=== PATIENT | female | born 1980 | race Caucasian/White ===

== ENCOUNTER 2016-09-28 12:15 | Emergency (ER) | payer MEDICARE, OTHER ==
[2016-09-28] MEDS ORDERED: diphenhydrAMINE 50 MG/ML 1 ML VIAL IVP STA (13:15)
[2016-09-28] MEDS ORDERED: METOCLOPRAMIDE 5 MG/ML 2 ML VIAL IVP STA (13:15)
[2016-09-28] MEDS ORDERED: SODIUM CHLORIDE 0.9% 500 ML IV ONE (13:15)
--- NOTE | 2016-09-28 13:55 | ED ---
Headache HPI - General Chief Complaint: Headache Stated Complaint: Migraine Time Seen by Provider: 09/28/16 13:07 Source: patient, RN notes reviewed Mode of arrival: ambulatory Limitations: no limitations - History of Present Illness Initial Comments: 35-year-old female presents emergency Department chief complaint migraine headache. Patient has a history of migraines. Patient's extremities fierce that daily. Patient states that she woke up today with a headache consistent with her normal migraine headaches. She states is diffuse slightly worse on the left. Patient denies focal weakness, dizziness, blurred vision, chest pain , shortness breath, fever, chills, neck pain. Patient denies any hematemesis but states that she did have some vomiting and nausea associated with her headache. Patient states is very common. Patient states that she is also recently found out that she is and she limited on her medications that she can take. Patient has no abdominal complaints. Denies any vaginal bleeding or vaginal discharge. - Related Data Home Medications Medication Instructions Recorded Confirmed Acetaminophen/Diphenhydramine 1 tab PO HS 09/28/16 09/28/16 [Tylenol PM 500-25mg] Butalb/APAP/Caff 50-325-40Mg 1 tab PO BID PRN 09/28/16 09/28/16 [Fioricet 50-325-40] Cyclobenzaprine [Flexeril] 5 mg PO DAILY PRN 09/28/16 09/28/16 Topiramate [Topamax] 50 mg PO HS 09/28/16 09/28/16 Allergies Allergy/AdvReac Type Severity Reaction Status Date / Time aspirin Allergy Nausea & Verified 09/28/16 13:34 Vomiting cephalexin monohydrate Allergy Rash/Hives Verified 09/28/16 13:34 [From Keflex] morphine Allergy Unknown Verified 09/28/16 13:34 propanolol Allergy Rash/Hives Uncoded 09/28/16 12:30 Review of Systems ROS Statement: Those systems with pertinent positive or pertinent negative responses have been documented in the HPI. ROS Other: All systems not noted in ROS Statement are negative. Past Medical History Past Medical History: Hyperlipidemia, Seizure Disorder Additional Past Medical History / Comment(s): ovarian cyst chronic back pain ddd bipolar, migraines History of Any Multi-Drug Resistant Organisms: None Reported Additional Past Surgical History / Comment(s): medical history - migraines, DDD. surgical history - laproscopy for ovarian cyst Past Psychological History: Anxiety, Bipolar, Depression Smoking Status: Current every day smoker Past Alcohol Use History: Occasional Past Drug Use History: Marijuana General Exam Limitations: no limitations General appearance: alert, in no apparent distress Head exam: Present: atraumatic, normocephalic, normal inspection Eye exam: Present: normal appearance, PERRL, EOMI. Absent: scleral icterus, conjunctival injection, periorbital swelling ENT exam: Present: normal exam, normal oropharynx, mucous membranes moist, TM's normal bilaterally Neck exam: Present: normal inspection. Absent: tenderness, meningismus, lymphadenopathy Respiratory exam: Present: normal lung sounds bilaterally. Absent: respiratory distress, wheezes, rales, rhonchi, stridor Cardiovascular Exam: Present: regular rate, normal rhythm, normal heart sounds. Absent: systolic murmur, diastolic murmur, rubs, gallop, clicks Neurological exam: Present: alert, oriented X3, CN II-XII intact, reflexes normal. Absent: motor sensory deficit Skin exam: Present: warm, dry, intact, normal color. Absent: rash Course Vital Signs 09/28/16 12:27 Temperature 98.1 F Pulse Rate 78 Respiratory 20 Rate Blood Pressure 128/78 O2 Sat by Pulse 100 Oximetry Medical Decision Making - Medical Decision Making 35-year-old female presents emergency department for headache. Patient's was given IV fluids, Reglan Benadryl. Patient states her symptoms have resolved. Patient will be discharged at this time. Disposition Clinical Impression: Migraine Disposition: HOME SELF-CARE Condition: Stable Instructions: Acute Headache (ED) Additional Instructions: Please return to the Emergency Department if symptoms worsen or any other concerns. Time of Disposition: 14:02
[2016-09-28 14:14] VITALS: BP 127/59; PULSE 79; RESP 16; TEMP 98.4
== END 2016-09-28 14:14 | disposition home or self-care (01) ==
LOC: EC 12:15
DX: G43.909 Migraine, unspecified, not intractable, without status migrainosus (principal); R11.2 Nausea with vomiting, unspecified; G40.909 Epilepsy, unspecified, not intractable, without status epilepticus; F31.9 Bipolar disorder, unspecified; F17.200 Nicotine dependence, unspecified, uncomplicated; Z79.899 Other long term (current) drug therapy; Z88.6 Allergy status to analgesic agent; Z88.1 Allergy status to other antibiotic agents; Z88.5 Allergy status to narcotic agent; Z88.8 Allergy status to other drugs, medicaments and biological substances
CPT/HCPCS: 99283; 96374; 96375; 96361; J1200; J2765

== ENCOUNTER 2018-10-23 07:14 | Inpatient (IN) | payer MEDICARE, OTHER ==
[2018-10-23] MEDS ORDERED: METOCLOPRAMIDE 5 MG/ML 2 ML VIAL IVP STA (07:41)
[2018-10-23] MEDS ORDERED: DILTIAZEM DRIP BOLUS FROM BAG 1 MG SOLN IV ONE (07:41)
[2018-10-23] MEDS ORDERED: SODIUM CHLORIDE 0.9% 1,000 ML IV STA (07:41)
[2018-10-23] MEDS ORDERED: diphenhydrAMINE 50 MG/ML 1 ML VIAL IVP STA ×2 (07:41→13:16)
--- NOTE | 2018-10-23 07:47 | ED ---
General Adult HPI - General Chief complaint: Headache Stated complaint: Headache Time Seen by Provider: 10/23/18 07:17 Source: patient, EMS, RN notes reviewed Mode of arrival: EMS Limitations: no limitations - History of Present Illness Initial comments: Patient is a pleasant 37-year-old female presenting to the emergency Department with headache. Onset of symptoms was yesterday evening. Symptoms have slowly progressive worsened since that time. Headache is now severe. Headache is left sided. Patient does have history of chronic headaches associated with chronic migraines. Patient does have nausea and did vomit once. Patient also has some photophobia. Patient does admit to having watering in her chest last week however none at this time. No chest discomfort. No dyspnea. Patient denies weakness. No fever. - Related Data Home Medications Medication Instructions Recorded Confirmed Butalb/APAP/Caff 50-325-40Mg 1 tab PO BID PRN 09/28/16 10/23/18 [Fioricet 50-325-40] Allergies Allergy/AdvReac Type Severity Reaction Status Date / Time aspirin Allergy Nausea & Verified 10/23/18 08:20 Vomiting cephalexin monohydrate Allergy Rash/Hives Verified 10/23/18 08:20 [From Keflex] morphine Allergy Unknown Verified 10/23/18 08:20 propanolol Allergy Rash/Hives Uncoded 09/28/16 12:30 Review of Systems ROS Statement: Those systems with pertinent positive or pertinent negative responses have been documented in the HPI. ROS Other: All systems not noted in ROS Statement are negative. Constitutional: Denies: fever Eyes: Denies: eye pain ENT: Denies: ear pain Respiratory: Denies: dyspnea Cardiovascular: Reports: palpitations. Denies: chest pain Endocrine: Denies: fatigue Gastrointestinal: Reports: nausea. Denies: abdominal pain Genitourinary: Denies: dysuria Musculoskeletal: Denies: back pain Skin: Denies: rash Neurological: Reports: headache. Denies: weakness, confusion Psychiatric: Reports: anxiety Past Medical History Past Medical History: Hyperlipidemia, Seizure Disorder Additional Past Medical History / Comment(s): ovarian cyst chronic back pain ddd bipolar, migraines History of Any Multi-Drug Resistant Organisms: None Reported Past Surgical History: Section Additional Past Surgical History / Comment(s): medical history - migraines, DDD. surgical history - laproscopy for ovarian cyst Past Psychological History: Anxiety, Bipolar, Depression Smoking Status: Current every day smoker Past Alcohol Use History: Occasional Past Drug Use History: Cocaine, Marijuana General Exam Limitations: no limitations General appearance: alert, in no apparent distress Head exam: Present: atraumatic Eye exam: Present: normal appearance, PERRL, EOMI. Absent: nystagmus ENT exam: Present: normal oropharynx Neck exam: Present: normal inspection Respiratory exam: Present: normal lung sounds bilaterally Cardiovascular Exam: Present: irregular rhythm, normal heart sounds GI/Abdominal exam: Present: soft. Absent: tenderness Extremities exam: Present: normal inspection. Absent: pedal edema, calf tenderness Neurological exam: Present: alert, oriented X3, CN II-XII intact. Absent: motor sensory deficit Expanded Neurological exam: Present: protecting the airway Speech: Present: fluid speech Cranial nerves: EOM's Intact: Normal Motor strength exam: RUE: 5, LUE: 5, RLE: 5, LLE: 5 Eye Response: (4) open spontaneously Motor Response: (6) obeys commands Verbal Response: (5) oriented Psychiatric exam: Present: normal affect, normal mood Skin exam: Present: normal color Course Vital Signs 10/23/18 10/23/18 10/23/18 07:20 07:24 07:30 Temperature 97.8 F Pulse Rate 125 H 129 H Respiratory 28 H 28 H Rate Blood Pressure 115/90 115/90 O2 Sat by Pulse 100 100 98 Oximetry 10/23/18 10/23/18 10/23/18 08:00 08:30 08:48 Temperature Pulse Rate 125 H 129 H Respiratory 22 Rate Blood Pressure 115/83 115/93 111/92 O2 Sat by Pulse 100 Oximetry EKG Findings - EKG Comments: EKG Findings:: A. fib with RVR, rate 1:30. QRS 70. QT 320. QTc 470. Normal axis. Normal QRS. No acute ST change. Medical Decision Making - Medical Decision Making Patient reevaluated and resting comfortably in bed. Headache has improved. Heart rate remains between 120 and 1:30. Patient is on Cardizem drip still. Patient does admit to using cocaine recently and states in the past she used to use frequently. Patient also states she has a sister with cardiac disease. Patient updated on results and plan. Case was discussed in detail with Dr. Murphy, covering for hospital call, who will admit. - Lab Data Result diagrams: 10/23/18 07:45 10/23/18 07:45 Lab Results 10/23/18 10/23/18 10/23/18 Range/Units 07:45 07:45 07:45 WBC 21.4 H (3.8-10.6) k/uL RBC 5.26 (3.80-5.40) m/uL Hgb 16.0 (11.4-16.0) gm/dL Hct 49.7 H (34.0-46.0) % MCV 94.4 (80.0-100.0) fL MCH 30.5 (25.0-35.0) pg MCHC 32.3 (31.0-37.0) g/dL RDW 13.1 (11.5-15.5) % Plt Count 362 (150-450) k/uL Neutrophils % 84 % Lymphocytes % 11 % Monocytes % 2 % Eosinophils % 2 % Basophils % 0 % Neutrophils # 17.9 H (1.3-7.7) k/uL Lymphocytes # 2.3 (1.0-4.8) k/uL Monocytes # 0.4 (0-1.0) k/uL Eosinophils # 0.5 (0-0.7) k/uL Basophils # 0.1 (0-0.2) k/uL PT (9.0-12.0) sec INR (<1.2) APTT (22.0-30.0) sec Sodium 141 (137-145) mmol/L Potassium 4.6 (3.5-5.1) mmol/L Chloride 107 (98-107) mmol/L Carbon Dioxide 25 (22-30) mmol/L Anion Gap 9 mmol/L BUN 11 (7-17) mg/dL Creatinine 0.65 (0.52-1.04) mg/dL Est GFR (CKD-EPI)AfAm >90 (>60 ml/min/1.73 sqM) Est GFR (CKD-EPI)NonAf >90 (>60 ml/min/1.73 sqM) Glucose 109 H (74-99) mg/dL Calcium 9.7 (8.4-10.2) mg/dL Magnesium 2.0 (1.6-2.3) mg/dL Total Bilirubin 0.4 (0.2-1.3) mg/dL AST 25 (14-36) U/L ALT 41 (9-52) U/L Alkaline Phosphatase 82 (38-126) U/L Creatine Kinase 149 H (30-135) U/L CK-MB (CK-2) 1.2 (0.0-2.4) ng/mL Troponin I <0.012 (0.000-0.034) ng/mL Total Protein 7.3 (6.3-8.2) g/dL Albumin 4.6 (3.5-5.0) g/dL TSH 1.160 (0.465-4.680) mIU/L Free T4 1.06 (0.78-2.19) ng/dL Free T3 pg/mL 4.2 (2.8-5.3) pg/ml 10/23/18 Range/Units 07:45 WBC (3.8-10.6) k/uL RBC (3.80-5.40) m/uL Hgb (11.4-16.0) gm/dL Hct (34.0-46.0) % MCV (80.0-100.0) fL MCH (25.0-35.0) pg MCHC (31.0-37.0) g/dL RDW (11.5-15.5) % Plt Count (150-450) k/uL Neutrophils % % Lymphocytes % % Monocytes % % Eosinophils % % Basophils % % Neutrophils # (1.3-7.7) k/uL Lymphocytes # (1.0-4.8) k/uL Monocytes # (0-1.0) k/uL Eosinophils # (0-0.7) k/uL Basophils # (0-0.2) k/uL PT 10.0 (9.0-12.0) sec INR 0.9 (<1.2) APTT 24.9 (22.0-30.0) sec Sodium (137-145) mmol/L Potassium (3.5-5.1) mmol/L Chloride (98-107) mmol/L Carbon Dioxide (22-30) mmol/L Anion Gap mmol/L BUN (7-17) mg/dL Creatinine (0.52-1.04) mg/dL Est GFR (CKD-EPI)AfAm (>60 ml/min/1.73 sqM) Est GFR (CKD-EPI)NonAf (>60 ml/min/1.73 sqM) Glucose (74-99) mg/dL Calcium (8.4-10.2) mg/dL Magnesium (1.6-2.3) mg/dL Total Bilirubin (0.2-1.3) mg/dL AST (14-36) U/L ALT (9-52) U/L Alkaline Phosphatase (38-126) U/L Creatine Kinase (30-135) U/L CK-MB (CK-2) (0.0-2.4) ng/mL Troponin I (0.000-0.034) ng/mL Total Protein (6.3-8.2) g/dL Albumin (3.5-5.0) g/dL TSH (0.465-4.680) mIU/L Free T4 (0.78-2.19) ng/dL Free T3 pg/mL (2.8-5.3) pg/ml - Radiology Data Radiology results: report reviewed (Computed tomography scan of the brain and CTA did not reveal acute abnormality.), image reviewed (Chest x-ray reveals no acute process.) Critical Care Time Critical Care Time: Yes Total Critical Care Time: 33 Disposition Clinical Impression: Headache, Atrial fibrillation with RVR Disposition: ADMITTED IP TO THIS [facility] Is patient prescribed a controlled substance at d/c from ED?: No Referrals: Nonstaff,Physician [REFERRING] - 1-2 days Decision Time: 09:54
[2018-10-23 08:02] LABS: Basophils # (A) 0.1 k/uL (0-0.2); Basophils % (A) 0 %; Eosinophils # (A) 0.5 k/uL (0-0.7); Eosinophils % (A) 2 %; HCT 49.7 % (34.0-46.0); Lymphocytes # (A) 2.3 k/uL (1.0-4.8); Lymphocytes % (A) 11 %; MCH 30.5 pg (25.0-35.0); MCHC 32.3 g/dL (31.0-37.0); MCV 94.4 fL (80.0-100.0); Mean Platelet Volume 7.9; Monocytes # (A) 0.4 k/uL (0-1.0); Monocytes % (A) 2 %; Neutrophils # (A) 17.9 k/uL (1.3-7.7); Neutrophils % (A) 84 %; Platelet Count 362 k/uL (150-450); RBC 5.26 m/uL (3.80-5.40); RDW 13.1 % (11.5-15.5); WBC 21.4 k/uL (3.8-10.6)
[2018-10-23] MEDS: DILTIAZEM 125 MG in SODIUM CHLORIDE 0.9% 100 ML IV SCH ×2 (08:05→10:15)
[2018-10-23 08:17] LABS: ALT 41 U/L (9-52); AST 25 U/L (14-36); Albumin 4.6 g/dL (3.5-5.0); Alkaline Phosphatase 82 U/L (38-126); Anion Gap 9 mmol/L; Blood Urea Nitrogen 11 mg/dL (7-17); Calcium 9.7 mg/dL (8.4-10.2); Carbon Dioxide 25 mmol/L (22-30); Chloride 107 mmol/L (98-107); Creatine Kinase 149 U/L (30-135); Glucose 109 mg/dL (74-99); Potassium 4.6 mmol/L (3.5-5.1); Sodium 141 mmol/L (137-145); Total Bilirubin 0.4 mg/dL (0.2-1.3); Total Protein 7.3 g/dL (6.3-8.2)
[2018-10-23 08:18] LABS: INR 0.9 (<1.2); Partial Thromboplastin Time 24.9 sec (22.0-30.0)
[2018-10-23 08:32] LABS: T4, Free (Free Thyroxine) 1.06 ng/dL (0.78-2.19)
[2018-10-23 08:40] LABS: Creatine Kinase MB 1.2 ng/mL (0.0-2.4); Troponin I <0.012 ng/mL (0.000-0.034)
--- NOTE | 2018-10-23 08:52 | CT ---
EXAMINATION TYPE: CT brain wo con DATE OF EXAM: 10/23/2018 COMPARISON: Previous study dated 04/16/1712. HISTORY: headache CT DLP: 1091.4 mGycm Automated exposure control for dose reduction was used. FINDINGS: Central structures are midline. There is no evidence of hydrocephalus. No acute focal lesion, mass ef fect or midline shift is seen. I do not see evidence of intracranial blood. There is mucoperiosteal thickening involving both maxillary sinuses as well as the ethmoid sinuses bi laterally. The mastoids are clear. The bony calvarium is intact. IMPRESSION: 1. NO ACUTE INTRACRANIAL ABNORMALITY. 2. 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
--- NOTE | 2018-10-23 08:52 | XR ---
EXAMINATION TYPE: XR chest 2V DATE OF EXAM: 10/23/2018 HISTORY: dysrhythmia. REFERENCE: NONE. FINDINGS: The lungs are clear. Pleural spaces are clear. The heart is not enlarged. IMPRESSION: NORMAL CHEST.
--- NOTE | 2018-10-23 09:07 | CT ---
EXAMINATION TYPE: CT angio head DATE OF EXAM: 10/23/2018 8:57 AM COMPARISON: Previous CT scan of the brain of earlier today. HISTORY: Headache CT DLP: 898.7 mGycm Automated exposure control for dose reduction was used. TECHNIQUE: Performed without and with IV Contrast, patient injected with 65 ml mL of Isovue 370. FINDINGS: The right vertebral artery is dominant. The basilar artery appears normal without a basilar tip aneurysm. Both posterior communicating arteries are patent. There is normal arborization of the middle cerebral artery. Both anterior cerebral artery are patent. No sizable aneurysm is seen. IMPRESSION: NORMAL CTA OF THE [place] OF PFEIFFER.
[2018-10-23] MEDS ORDERED: ASPIRIN 81 MG PO STA (09:54)
[2018-10-23] MEDS ORDERED: HEPARIN SODIUM,PORCINE 5,000 UNIT/ML 1 ML VIAL IV ONE (09:54)
[2018-10-23] MEDS ORDERED: HEPARIN SODIUM,PORCINE 5,000 UNIT/ML 1 ML VIAL IV PRN (09:54)
[2018-10-23] MEDS ORDERED: HEPARIN SOD,PORK IN 0.45% NACL 25,000 UNIT in 0.45% NACL 1 250ML.BAG IV SCH (10:00)
[2018-10-23 11:44] LABS: Appearance,Urine Clear (Clear); Bilirubin,Urine Negative (Negative); Blood,Urine Negative (Negative); Color,Urine Light Yellow; Glucose,Urine (UA) Negative (Negative); Ketones,Urine Negative (Negative); Leukocyte Esterase,Urine Negative (Negative); Nitrite,Urine Negative (Negative); Protein,Urine Negative (Negative); Urobilinogen,Urine <2.0 mg/dL (<2.0)
[2018-10-23 12:00] LABS: Amphetamine Screen,Urine Not Detected (NotDetected); Barbiturate Screen,Urine Detected (NotDetected); Benzodiazepines Screen,Urine Not Detected (NotDetected); Cocaine Screen,Urine Detected (NotDetected); Methadone Screen, Urine Not Detected (NotDetected); Opiate Screen,Urine Not Detected (NotDetected); Oxycodone Screen, Urine Not Detected (NotDetected); Phencyclidine Screen,Urine Not Detected (NotDetected); Tricyclic Antidepressant,Urine Not Detected (NotDetected); Urn Cannabinoid Scrn Detected (NotDetected)
--- NOTE | 2018-10-23 12:25 | CONS ---
CONSULTATION Mrs Biswas is a 37-year-old female with history of chronic tobacco use, history of chronic migraine, who presented to the emergency room with symptoms of worsening migraine that has not been resolved. In the emergency room, she was noted to be in atrial fibrillation and subsequently converted spontaneously to sinus mechanism. She was having a lot of headache and she cannot recall that she had any change in her breathing or any palpitations. She is average in exercise tolerance and has no exertional dyspnea or chest discomfort. She had a funny feeling in the chest, but she is not quite sure if it was palpitations. She has no prior documented history of arrhythmia. She has no PND, orthopnea, or peripheral edema. No dizziness or syncope. Her headache is better. Her coronary risk factors are positive for smoking about a pack a day. Not a diabetic. At home, she has noted her blood pressure was elevated at times, although she is not on treatment. MEDICATIONS: At home include Fioricet. REVIEW OF SYSTEMS: RESPIRATORY system: She has no documented history of asthma or emphysema. She has chronic tobacco use. GI system: No recent GI bleed. No peptic ulcer disease. system: No dysuria or hematuria. NERVOUS SYSTEM: No history of stroke or seizure. She has a history of migraine. PHYSICAL EXAMINATION: GENERAL: She is a 37-year-old female, alert, oriented, in no apparent distress. VITAL SIGNS: Blood pressure 106/60 with a heart rate in the 90s. HEAD: Normocephalic. EYES sclerae anicteric. NECK: Good upstroke. No bruit. No jugular venous distention. LUNGS: Clear to auscultation. HEART: Regular rate and rhythm, S1, S2. No S3. No S4. No murmur or rub. ABDOMEN: Soft, nontender. Positive bowel sounds. No organomegaly. EXTREMITIES: No edema, intact distal pulses. LAB DATA: Lab data revealed troponin less than 0.012. Magnesium of 2.0, BUN and creatinine 11 and 0.65. Potassium 4.6. TSH 1.1. Her toxicology was positive for cocaine and marijuana. Hemoglobin of 16, white blood cell of 21.4. EKG revealed atrial fibrillation with rapid ventricular response, rate of [address]-T wave changes. Subsequent EKG revealed sinus mechanism with no acute ST-segment changes. Her chest x-ray shows no evidence of acute infiltrate. IMPRESSION: 1. Migraine attack, improving. 2. Paroxysmal fibrillation not documented in the past. 3. Chronic tobacco use. RECOMMENDATION: At this time, I will continue clinical observation. The patient's CHADS-VASC score is 1. No anticoagulation is needed at this time. I will obtain echocardiogram with Doppler. If there is no evidence of significant abnormality, then no further workup will be needed. Thank you for this consult. We will follow with you. NELLA / IJN: [id number] /
[2018-10-23] MEDS ORDERED: BUTALB/APAP/CAFF 50-325-40MG TAB PO PRN (12:26)
[2018-10-23] MEDS: BUTALB/APAP/CAFF 50-325-40MG TAB PO PRN ×3 (12:59→23:02)
--- NOTE | 2018-10-23 13:13 | P.HPIM ---
History of Present Illness Chief Complaint: Migraine headaches 37-year-old female with a past medical history significant for migraines comes in with above-mentioned complaints. Patient said that she has a history of migraines and she often takes Fioricet. She started having another attack of migraine yesterday in the evening which was not improving and was in fact progressively worsening. It was the left side of the head and she was having nausea and she vomited once. She also is having photophobia. She does came into the ER for further urology management. Patient otherwise says that she had a few occasions where she was having chest pain in the left side of the chest which she did not think of much. She does not complain of any racing heart, no cough no shortness breath, no abdominal pain, no diarrhea constipation, no tingling numbness of any extremities, no itch or rash. Patient says that she's been noticing that her blood pressure was intermittently high for the past few days. ER course-patient's vitals were stable. Labwork shows WBC 21.4 hemoglobin 16.0 platelets 362 sodium 141 potassium 4.6 bun 11 creatinine 0.65 LFTs are normal year was negative. Urine drug screen shows cocaine and marijuana and barbiturates. He EKG shows A. fib with RVR with a heart rate in 130s and 140s. She had a CT of the head and CT of the head done which was negative. Chest x- ray was negative. Patient started on Cardizem and heparin drip. She she was also given Benadryl and Reglan and admitted to the hospital for further eval uation and management. Review of Systems All systems: negative Past Medical History Past Medical History: Hyperlipidemia, Seizure Disorder Additional Past Medical History / Comment(s): ovarian cyst chronic back pain ddd bipolar, migraines History of Any Multi-Drug Resistant Organisms: None Reported Past Surgical History: Section Additional Past Surgical History / Comment(s): medical history - migraines, DDD. surgical history - laproscopy for ovarian cyst Past Psychological History: Anxiety, Bipolar, Depression Smoking Status: Current every day smoker Past Alcohol Use History: Occasional Past Drug Use History: Cocaine, Marijuana Medications and Allergies Home Medications Medication Instructions Recorded Confirmed Type Butalb/APAP/Caff 50-325-40Mg 1 tab PO BID PRN 09/28/16 10/23/18 History [Fioricet 50-325-40] Allergies Allergy/AdvReac Type Severity Reaction Status Date / Time aspirin Allergy Nausea & Verified 10/23/18 08:20 Vomiting cephalexin monohydrate Allergy Rash/Hives Verified 10/23/18 08:20 [From Keflex] morphine Allergy Unknown Verified 10/23/18 08:20 propanolol Allergy Rash/Hives Uncoded 09/28/16 12:30 Physical Exam Vitals: Vital Signs Temp Pulse Resp BP Pulse Ox 10/23/18 12:00 97.8 F 93 15 106/60 96 10/23/18 11:14 93 15 106/60 96 10/23/18 11:00 93 15 106/60 96 10/23/18 10:30 138 H 24 114/95 93 L 10/23/18 10:00 134 H 16 114/95 97 10/23/18 09:30 146 H 10 L 122/88 99 10/23/18 09:00 140 H 17 111/92 99 10/23/18 08:48 129 H 111/92 10/23/18 08:30 115/93 10/23/18 08:00 125 H 22 115/83 100 10/23/18 07:30 129 H 28 H 115/90 98 10/23/18 07:24 97.8 F 125 H 28 H 115/90 100 10/23/18 07:20 100 Intake and Output 10/22/18 10/23/18 10/23/18 22:59 06:59 14:59 Intake Total 828.000 Balance 828.000 Intake: Amount of Fluid Infused ( 800 ml) Intake, IV Titration 28.000 Amount Diltiazem 125 mg In 28.000 Sodium Chloride 0.9% 100 ml @ 10 MG/HR 10 mls/hr IV .[id number] [facility] Rx#: [id number] Other: Weight 77.111 kg On exam, alert and oriented x3. HEENT: Conjunctivae normal. eyes normal. NECK: No JVD. No thyroid enlargement. No LNs CARDIOVASCULAR: S1-S2 positive tachycardic irregularly irregular rhythm RESPIRATION: Breath sounds diminished in the bases. No rhonchi or crackles. No b ronchial breathing. ABDOMEN: Soft, nontender . No guarding. no masses palpable. No ascites, No hep atosplenomegaly.Bowel sounds heard. LEGS: No edema. no swelling NERVOUS SYSTEM: Cranial N 2-12 grossly normal. Moves all 4 limbs. No focal deficits. No sensory deficit. No signs of cerebellar dysfucntion. Skin: no ulcer no rash Joints: No active swelling. No inflammation. Lymphatic system. No LN neck axilla or groin. Results CBC & Chem 7: 10/23/18 07:45 10/23/18 07:45 Labs: Abnormal Lab Results - Last 24 Hours (Table) 10/23/18 10/23/18 10/23/18 Range/Units 07:45 07:45 10:45 WBC 21.4 H (3.8-10.6) k/uL Hct 49.7 H (34.0-46.0) % Neutrophils # 17.9 H (1.3-7.7) k/uL Glucose 109 H (74-99) mg/dL Creatine Kinase 149 H (30-135) U/L Ur Specific [place] 1.050 H (1.001-1.035) Ur Barbiturates Screen Detected H (NotDetected) Urine Cocaine Screen Detected H (NotDetected) U Marijuana (THC) Screen Detected H (NotDetected) Assessment and Plan Assessment: A. fib with RVR Migraines Hypertension not officially diagnosed Plan - We'll admit the patient to stepdown - Cardiology consulted for the expert recommendations - Echocardiogram ordered - We'll give the patient the migraine cocktail to include Solu-Medrol, Benadryl and Toradol and we'll see how she does - We'll continue Fioricet - DVT and GI prophylaxis - We'll order for lab work in the morning - Expected length of stay: 2 midnights - Patient is full code Time with Patient: Greater than 30
[2018-10-23] MEDS ORDERED: KETOROLAC 30 MG/ML 1 ML VIAL IVP STA (13:14)
[2018-10-23] MEDS ORDERED: methylPREDNISolone SOD SUCCI 125 MG/2 ML VIAL IV STA (13:17)
[2018-10-23 14:49] VITALS: BMI 30.1
[2018-10-23] MEDS: NICOTINE 21MG/24HR PATCH TRANSDERM SCH (15:32)
[2018-10-24 04:21] LABS: HCT 45.6 % (34.0-46.0); HGB 14.7 gm/dL (11.4-16.0); MCH 30.8 pg (25.0-35.0); MCHC 32.3 g/dL (31.0-37.0); MCV 95.4 fL (80.0-100.0); Mean Platelet Volume 7.3; Platelet Count 316 k/uL (150-450); RBC 4.78 m/uL (3.80-5.40); RDW 12.6 % (11.5-15.5); WBC 16.1 k/uL (3.8-10.6)
[2018-10-24 04:30] LABS: Anion Gap 6 mmol/L; Blood Urea Nitrogen 12 mg/dL (7-17); Carbon Dioxide 23 mmol/L (22-30); Chloride 109 mmol/L (98-107); Cholesterol 220 mg/dL (<200); Glucose 107 mg/dL (74-99); HDL Cholesterol 65 mg/dL (40-60); LDL Cholesterol,Calculated 125 mg/dL (0-99); Potassium 4.4 mmol/L (3.5-5.1); Sodium 138 mmol/L (137-145); Triglycerides 150 mg/dL (<150)
[2018-10-24 07:46] VITALS: RESP 16; TEMP 97
[2018-10-24] MEDS: BUTALB/APAP/CAFF 50-325-40MG TAB PO PRN ×2 (08:06→13:07)
[2018-10-24] MEDS: NICOTINE 21MG/24HR PATCH TRANSDERM SCH (08:07)
[2018-10-24] MEDS ORDERED: ASPIRIN 325 MG TAB PO SCH (09:00)
--- NOTE | 2018-10-24 10:29 | P.PN ---
Subjective Progress Note Date: 10/24/18 This is a 37-year-old female with history of chronic tobacco use, chronic migraine, who presented to the hospital with symptoms of worsening migraine. In the emergency room she was noted to be in atrial fibrillation and subsequently converted spontaneously to sinus rhythm. She continues to be in a normal sinus rhythm this morning. The patient was seen in consultation yesterday by Dr. Winkler. An echocardiogram with Doppler study has been requested, results are yet pending. Overall the patient does feel better today, still has a mild headache but much improved from her admission here. Blood pressure 122/70, heart rate in the 70s to 80s, 99% on room air. Blood cell count 16.1, hemoglobin 14.7, platelet count 316. Sodium 138, potassium 4.4, BUN 12 and creatinine 0.6. Cholesterol 220, LDL 125 triglycerides 150 HDL 65. Objective - Vital Signs Vital signs: Vital Signs Temp 97.0 F L 10/24/18 07:43 Pulse 91 10/24/18 07:43 Resp 16 10/24/18 07:43 BP 123/73 10/24/18 07:43 Pulse Ox 99 10/24/18 07:43 Intake & Output 10/23/18 10/24/18 10/24/18 18:59 06:59 18:59 Intake Total 2388.000 240 Balance 2388.000 240 Weight 77.111 kg 78.4 kg Intake: Amount of Fluid Infused ( 800 ml) Intake, IV Titration 28.000 Amount Diltiazem 125 mg In 28.000 Sodium Chloride 0.9% 100 ml @ 10 MG/HR 10 mls/hr IV .[id number] [facility] Rx#: [id number] Oral 1560 240 Other: Voiding Method Toilet # Voids 1 2 - Exam PHYSICAL EXAMINATION: GENERAL: 37-year-old female in no acute distress at the time of my examination HEENT: Head is atraumatic, normocephalic. Pupils equal, round. Sclera anicteric. Conjunctiva are clear. Mucous membranes of the mouth are moist. Neck is supple. There is no elevated jugular venous pressure. No carotid bruit is heard. HEART EXAMINATION: Heart S1, S2 normal. No murmur or gallop heard. CHEST EXAMINATION: Lungs are clear to auscultation and precussion. No chest wall tenderness is noted on palpation or with deep breathing. ABDOMEN: Soft, nontender. Bowel sounds are heard. No organomegaly noted. EXTREMITIES: 2+ peripheral pulses with no evidence of peripheral edema and no calf tenderness noted. NEUROLOGIC patient is awake, alert and oriented 3. Mild headache this morning. . - Labs CBC & Chem 7: 10/24/18 04:00 10/24/18 04:00 Labs: Abnormal Lab Results - Last 24 Hours (Table) 10/23/18 10/24/18 10/24/18 Range/Units 10:45 04:00 04:00 WBC 16.1 H (3.8-10.6) k/uL Chloride 109 H (98-107) mmol/L Glucose 107 H (74-99) mg/dL Triglycerides 150 H (<150) mg/dL Cholesterol 220 H (<200) mg/dL LDL Cholesterol, Calc 125 H (0-99) mg/dL HDL Cholesterol 65 H (40-60) mg/dL Ur Specific [place] 1.050 H (1.001-1.035) Ur Barbiturates Screen Detected H (NotDetected) Urine Cocaine Screen Detected H (NotDetected) U Marijuana (THC) Screen Detected H (NotDetected) Assessment and Plan Plan: Assessment and plan #1 migraine, improving this morning. Patient has known history of migraines #2 paroxysmal atrial fibrillation, not prior documented on the past remaining in normal sinus rhythm. JANET VASC score of 1. #3 chronic tobacco use Plan We will review the echocardiogram with Doppler study. If normal, patient may be able to be discharged home from our perspective. We'll make a follow-up appointment in the office post discharge. DNP note has been reviewed, I agree with a documented findings and plan of care. Patient was seen and examined.
[2018-10-24 11:20] VITALS: BP 125/78; PULSE 86
--- NOTE | 2018-10-24 19:00 | ECHOF ---
Referral Reason:A. fib with RVR MEASUREMENTS -------- HEIGHT: 160.0 cm WEIGHT: 78.0 kg BP: 107/71 IVSd: 1.0 cm (0.6 - 1.1) LVIDd: 3.8 cm (3.9 - 5.3) LVPWd: 1.1 cm (0.6 - 1.1) IVSs: 1.3 cm LVIDs: 2.8 cm LVPWs: 1.3 cm RVIDd: 2.6 cm (< 3.3) Ao Diam: 2.4 cm (2.0 - 3.7) LA Diam: 3.2 cm (2.7 - 3.8) AV Cusp: 1.7 cm (1.5 - 2.6) EPSS: 0.2 cm MV E Gareth: 0.87 m/s MV DecT: 228 ms MV A Gareth: 0.74 m/s MV E/A Ratio: 1.18 RAP: 5.00 mmHg RVSP: 27.57 mmHg MV EF SLOPE: 76.80 mm/s (70 - 150) MV EXCURSION: 13.82 mm (> 18.000) FINDINGS -------- Sinus rhythm. This was a technically good study. The left ventricular size is normal. Left ventricular wall thickness is normal. Overall left vent ricular systolic function is normal with, an EF between 55 - 60 %. The right ventricle is normal in size. The left atrial size is normal. The right atrial size is normal. The aortic valve is trileaflet and appears structurally normal. There is trace mitral regurgitation. Trace tricuspid regurgitation present. The right ventricular systolic pressure, as measured by Dopp ler, is 27.57mmHg. There is no pulmonic regurgitation present. The aortic root size is normal. Normal inferior vena cava with normal inspiratory collapse consistent with estimated right atrial pre ssure of 5 mmHg. There is no pericardial effusion. CONCLUSIONS -------- 1. Sinus rhythm. 2. This was a technically good study. 3. The left ventricular size is normal. 4. Left ventricular wall thickness is normal. 5. Overall left ventricular systolic function is normal with, an EF between 55 - 60 %. 6. The right ventricle is normal in size. 7. The left atrial size is normal. 8. The right atrial size is normal. 9. The aortic valve is trileaflet and appears structurally normal. 10. There is trace mitral regurgitation. 11. Trace tricuspid regurgitation present. 12. The right ventricular systolic pressure, as measured by Doppler, is 27.57mmHg. 13. There is no pulmonic regurgitation present. 14. The aortic root size is normal. 15. Normal inferior vena cava with normal inspiratory collapse consistent with estimated right atrial pressure of 5 mmHg. 16. There is no pericardial effusion. VENETIAN BLIND MACHINE OPERATOR: Angie Bray RDCS
--- NOTE | 2018-10-24 19:41 | P.DS ---
Providers Date of admission: 10/23/18 09:55 Attending physician: Zeus Watkins MD Consults: 10/23/18 09:55 Consult Physician Urgent Consulting Provider: Dorian Roblero Consult Reason/Comments: a fib w rvr Do you want consulting provider notified?: Yes Primary care physician: Stated None Hospital Course: Diagnoses A. fib with RVR Migraines Substance abuse, including cocaine and marijuana Nicotine dependence leukocytosis, mostly reactive. Hospital course 37-year-old female with a past medical history significant for migraines comes in with above-mentioned complaints. Patient said that she has a history of migraines and she often takes Fioricet. She presents with worsening migrating however patient was found to have atrial fibrillation which is subsequently converted spontaneously to sinus rhythm. Patient has been evaluated by canal equipment maintenance supervisor who cleared her for discharge. She has negative CT and CTA of the head. Also she has leukocytosis which is resolving spontaneously from 21 down to 16 K, She has negative chest x-ray and analysis. She has no rash. No diarrhea. She has some sinuses but no discharge and no pharyngitis. No abdominal pain or diarrhea. No nausea vomiting. No other signs of infection. Patient was so eager to go home and her and besides want to take her home as they've they've about [address] to [address], she is has no symptoms except that her migraine which is at chronic level. And she told me about her white cell count she can go and see her PCP in 2 days to check her level again. i called her pcp office and talked to her Estee (her original EQUIPMENT HIRE MANAGER) and make appointment with the EQUIPMENT HIRE MANAGER , Saumya Gallagher whom is available to see pt and updated her about all pt information and make appointment with her on 10/26/18 and pt agrees to f/u with her and will check her wbc with her . Patient today came back to her usual clinical state and at its chronic level. patient said that she will call and make an appointment with her. Neurologist Dr. Locke Currently patient denies any chest pain or dyspnea. No change in urine or bowel habits. No nausea vomiting. No abdominal pain. No fever. Patient looks his stable and she wants to go home Patient was counseled about smoking and substance abuse including marijuana and cocaine reactive risks including but not limited to stroke, heart attack and and/or organ dysfunction which could be permanent and explained to her and she verbalized understanding. Problems and management plan was discussed with the patient and she verbalized understanding and acceptance Patient is stable for discharge and cut prognosis however she needs follow-up as an outpatient. Patient agrees with the appointments made for her to the cardiology and she says she will follow-up. Patient was instructed to follow up with her PCP in one to 2 days and she agrees, patient told me she usually can call and get to her PCP office in 2 days, patient was instructed to recheck her white cell count because it was high and coming down spontaneously and she agrees. Also she told me she is going to call and make an appointment with her neurologist Dr. Locke. Gen: patient is a AAOx3, no distress CVS: S1-S2, RRR, no murmur Lungs: B/L CTA, no wheezing Abdomen: soft, no distention, no tenderness, positive bowel sounds Extremity: no leg edema or induration Time spent more than 35 minutes Patient Condition at Discharge: Stable Plan - Discharge Summary New Discharge Prescriptions: Continue Butalb/APAP/Caff 50-325-40Mg [Fioricet 50-325-40] 1 tab PO BID PRN #6 tab PRN Reason: Migraine Headache Discharge Medication List Butalb/APAP/Caff 50-325-40Mg [Fioricet 50-325-40] 1 tab PO BID PRN #6 tab 10/24/18 [Rx] Follow up Appointment(s)/Referral(s): Paula Winkler MD [STAFF PHYSICIAN] - 11/24/18 10:45 am Nonstaff,Physician [REFERRING] - 10/26/18 9:30 am (follow up with GERMÁN Cantrell of your PCP office please check your white cell count with your doctor ) Prince Locke MD [STAFF PHYSICIAN] - 10/31/18 10:15 am (Please keep previously scheduled appointments. ) Patient Instructions/Handouts: A-fib (Atrial Fibrillation) (DC), How to Stop Smoking (GEN) Discharge Disposition: HOME SELF-CARE
== END 2018-10-24 14:20 | disposition home or self-care (01) | DRG 310 ==
LOC: EC 07:14 → 3SCARD 09:55
PROVIDERS: ADMIT Internal Medicine; ATTEND Internal Medicine
DX: I48.0 Paroxysmal atrial fibrillation (principal); D72.829 Elevated white blood cell count, unspecified; E78.5 Hyperlipidemia, unspecified; F14.10 Cocaine abuse, uncomplicated; F17.210 Nicotine dependence, cigarettes, uncomplicated; F31.9 Bipolar disorder, unspecified; F41.9 Anxiety disorder, unspecified; G40.909 Epilepsy, unspecified, not intractable, without status epilepticus; G43.909 Migraine, unspecified, not intractable, without status migrainosus; I10 Essential (primary) hypertension; G89.29 Other chronic pain; M54.9 Dorsalgia, unspecified; F12.10 Cannabis abuse, uncomplicated; Z88.6 Allergy status to analgesic agent; Z88.1 Allergy status to other antibiotic agents; Z88.5 Allergy status to narcotic agent
CPT/HCPCS: 36415; 70450; 70496; 71046; 80048; 80053; 80061; 80201; 80306; 81003; 82550; 82553; 83735; 84439; 84443; 84481; 84484; 85025; 85027; 85049; 85610; 85730; 93005; 93306; 96365; 96366; 96368; 96375; 96376; 99291

== ENCOUNTER → 2018-11-10 | Outpatient (CLI) | payer MEDICARE, OTHER ==
--- NOTE | 2018-11-10 12:26 | MR ---
EXAMINATION TYPE: MR brain wo/w con DATE OF EXAM: 11/10/2018 COMPARISON: Prior brain MRI 11/06/2014 HISTORY: Headache / Unspecified convulsions TECHNIQUE: Multiplanar, multisequence images of the brain and brainstem is performed without and with IV contras t, utilizing 7.5 mL intravenous Gadavist . FINDINGS: Diffusion weighted images demonstrate no evidence of a recent infarct or other diffusion ab normality. There is no extra-axial fluid collection or significant interval change in white matter s ignal abnormality. The ventricular system and cisternal spaces are normal in size and appearance. T he brain volume is age appropriate. Midline structures demonstrate normal morphology. The craniocervical junction appears within normal limits. Post contrast images demonstrate no abnormal enhancement. The dural venous sinuses appear pa tent. The visualized sinuses are remarkable for mucosal thickening in the maxillary sinuses, ethmoid air cells and frontal sinus, and the globes are intact. IMPRESSION: Stable exam. Nonspecific white matter hyperintensities show no significant interval fox e. Mild sinus disease.
== END | disposition home or self-care (01) ==
LOC: RADMRIMAIN 08:57
PROVIDERS: ATTEND Psychiatry & Neurology Neurology
DX: R56.9 Unspecified convulsions (principal); R51 Headache
CPT/HCPCS: 70553; A9585

== ENCOUNTER 2021-02-17 16:18 | Inpatient (IN) | payer MEDICARE, OTHER ==
[2021-02-17] MEDS ORDERED: ZIPRASIDONE 20 MG VIAL IM STA (16:45)
[2021-02-17] MEDS ORDERED: LORazepam 2 MG/ML INJ IM STA (16:45)
--- NOTE | 2021-02-17 16:45 | ED ---
General Adult HPI - General Chief complaint: Seizure Stated complaint: Seizure Time Seen by Provider: 02/17/21 16:28 Source: EMS Mode of arrival: EMS Limitations: altered mental status - History of Present Illness Initial comments: Patient presents to the ED by ambulance for evaluation. Per EMS, the patient's boyfriend reported to them that the patient had a possible seizure today. On arrival to the ED, the patient is very aggressive and combative with the ED staff. She is uncooperative and yelling and cursing at the ED staff. Patient is not answering any questions appropriately for me. Patient was placed in 4 point restraints for her safety and the safety of the ED staff. Sedative medications have also been ordered given her excited delirium. - Related Data Home Medications Medication Instructions Recorded Confirmed ALPRAZolam [Xanax] 0.5 mg PO BID PRN 02/17/21 02/17/21 Benztropine Mesylate 1 mg PO BID 02/17/21 02/17/21 Butalb/APAP/Caff 50-325-40Mg 1 tab PO BID PRN 02/17/21 02/17/21 [Fioricet 50-325-40] QUEtiapine [SEROquel] 50 mg PO BID 02/17/21 02/17/21 Rizatriptan Benzoate [Rizatriptan] 10 mg PO DAILY PRN 02/17/21 02/17/21 lamoTRIgine [LaMICtal] 1 dose PO DIRECTED 02/17/21 02/17/21 Allergies Allergy/AdvReac Type Severity Reaction Status Date / Time aspirin Allergy Nausea & Verified 10/23/18 08:20 Vomiting cephalexin monohydrate Allergy Rash/Hives Verified 10/23/18 08:20 [From Keflex] morphine Allergy Unknown Verified 10/23/18 08:20 propanolol Allergy Rash/Hives Uncoded 09/28/16 12:30 Review of Systems ROS Statement: Those systems with pertinent positive or pertinent negative responses have been documented in the HPI. ROS Other: All systems not noted in ROS Statement are negative. Limitations: ROS unobtainable due to patients medical condition Past Medical History Past Medical History: Hyperlipidemia, Seizure Disorder Additional Past Medical History / Comment(s): ovarian cyst chronic back pain ddd bipolar, migraines History of Any Multi-Drug Resistant Organisms: None Reported Past Surgical History: Section Additional Past Surgical History / Comment(s): medical history - migraines, DDD. surgical history - laproscopy for ovarian cyst Past Anesthesia/Blood Transfusion Reactions: No Reported Reaction Past Psychological History: Anxiety, Bipolar, Depression Smoking Status: Never smoker Past Alcohol Use History: Occasional Past Drug Use History: Cocaine, Marijuana - Past Family History Mother History Unknown: Yes Family Medical History: Cancer, Coronary Artery Disease (CAD), Hyperlipidemia, Hypertension General Exam Limitations: altered mental status General appearance: alert, other (Combative, aggressive behavior) Head exam: Present: atraumatic, normocephalic Eye exam: Present: normal appearance, PERRL ENT exam: Present: mucous membranes moist Neck exam: Present: other (Trachea is in midline). Absent: tenderness Respiratory exam: Present: normal lung sounds bilaterally. Absent: respiratory distress, wheezes, rales, rhonchi, stridor Cardiovascular Exam: Present: regular rate, normal rhythm, normal heart sounds, other (Normal radial pulses bilaterally) GI/Abdominal exam: Present: soft. Absent: distended, tenderness, guarding Extremities exam: Present: full ROM. Absent: tenderness, pedal edema Back exam: Present: normal inspection. Absent: tenderness Neurological exam: Present: alert. Absent: motor sensory deficit Psychiatric exam: Present: agitated Skin exam: Present: warm, dry, intact, normal color Course Vital Signs 02/17/21 02/17/21 16:21 18:18 Temperature 98.9 F Pulse Rate 67 85 Respiratory 16 16 Rate Blood Pressure 121/81 112/89 O2 Sat by Pulse 97 98 Oximetry - Reevaluation(s) Reevaluation #1: 02/17/21 18:15 Patient is now sedate and no longer combative. Patient is easily arousable, and she is following simple commands at this time. 02/17/21 21:05 Case, H&P, test results and ED management thus far were discussed with Dr. Guardado. He accepts hospital admission. He agrees with psychiatry consultation. He has no further recommendations at this time. 02/17/21 21:13 Patient remains sedate and noncombative. Will admit the patient to the hospital at this time for observation and further evaluation. EKG Findings - EKG Comments: EKG Findings:: Normal sinus rhythm, ventricular rate of 79 bpm, no ectopy, normal WI and QRS intervals, normal QT interval, normal axis, no ST or T-wave abnormality Procedures - Restraint - Face to Face Restraint Occurrence 1 Patient's Immediate Situation: Endangers self safety, Endangers staff safety, Violent behavior Patient's Reaction to the Intervention: Uncooperative, Angry Patient's Reaction to the Intervention - Comment: Patient was combative and angry at time of restraint application. Patient's Medical & Behavioral Condition: Drowsy Patient's Medical & Behavioral Condition - Comment: Pt is now drowsy/sedate after administration of IM Geodon and IM Ativan. Need to Continue or Terminate Restraint or Seclusion: Continue Face to Face Eval of Restraint Date: 02/17/21 Face to Face Eval of Restraint Time: 18:30 Medical Decision Making - Medical Decision Making I suspect that the patient's excited delirium and acute psychosis are likely secondary to polysubstance abuse and/or mental health illness. I suspect that the patient's leukocytosis is likely reactive. Patient is afebrile and without nuchal rigidity or meningeal signs on examination. Patient's head CT is negative. Will admit the patient to the hospital for monitoring and further evaluation. Dr. Guardado has accepted hospital admission. A psychiatry consultation order has been placed. A procalcitonin level has been ordered and is still pending at this time. - Lab Data Result diagrams: 02/17/21 17:17 02/17/21 17:17 Lab Results 02/17/21 02/17/21 02/17/21 Range/Units 17:17 17:17 20:20 WBC 24.9 H (3.8-10.6) k/uL RBC 4.92 (3.80-5.40) m/uL Hgb 15.8 (11.4-16.0) gm/dL Hct 47.2 H (34.0-46.0) % MCV 96.0 (80.0-100.0) fL MCH 32.2 (25.0-35.0) pg MCHC 33.5 (31.0-37.0) g/dL RDW 13.0 (11.5-15.5) % Plt Count 378 (150-450) k/uL MPV 9.6 Neutrophils % (Manual) 65 % Lymphocytes % (Manual) 29 % Monocytes % (Manual) 3 % Eosinophils % (Manual) 3 % Neutrophils # (Manual) 16.19 H (1.3-7.7) k/uL Lymphocytes # (Manual) 7.22 H (1.0-4.8) k/uL Monocytes # (Manual) 0.75 (0-1.0) k/uL Eosinophils # (Manual) 0.75 H (0-0.7) k/uL Nucleated RBCs 0 (0-0) /100 WBC Manual Slide Review Performed Sodium 141 (137-145) mmol/L Potassium 3.9 (3.5-5.1) mmol/L Chloride 108 H (98-107) mmol/L Carbon Dioxide 13 L (22-30) mmol/L Anion Gap 20 mmol/L BUN 9 (7-17) mg/dL Creatinine 0.76 (0.52-1.04) mg/dL Est GFR (CKD-EPI)AfAm >90 (>60 ml/min/1.73 sqM) Est GFR (CKD-EPI)NonAf >90 (>60 ml/min/1.73 sqM) Glucose 150 H (74-99) mg/dL Calcium 10.1 (8.4-10.2) mg/dL Magnesium 2.3 (1.6-2.3) mg/dL Total Bilirubin 0.3 (0.2-1.3) mg/dL AST 41 H (14-36) U/L ALT 42 H (4-34) U/L Alkaline Phosphatase 104 (38-126) U/L Total Protein 8.1 (6.3-8.2) g/dL Albumin 5.0 (3.5-5.0) g/dL HCG, Qual Not Detected Urine Color Yellow Urine Appearance Cloudy H (Clear) Urine pH 6.0 (5.0-8.0) Ur Specific [place] 1.027 (1.001-1.035) Urine Protein Trace H (Negative) Urine Glucose (UA) Negative (Negative) Urine Ketones 1+ H (Negative) Urine Blood Negative (Negative) Urine Nitrite Negative (Negative) Urine Bilirubin Negative (Negative) Urine Urobilinogen 2.0 (<2.0) mg/dL Ur Leukocyte Esterase Negative (Negative) Urine RBC 2 (0-5) /hpf Urine WBC 7 H (0-5) /hpf Ur Squamous Epith Cells 8 H (0-4) /hpf Urine Mucus Moderate H (None) /hpf Salicylates <1.0 mg/dL Urine Opiates Screen Not Detected (NotDetected) Ur Oxycodone Screen Not Detected (NotDetected) Urine Methadone Screen Not Detected (NotDetected) Ur Propoxyphene Screen Not Detected (NotDetected) Acetaminophen <10.0 ug/mL Ur Barbiturates Screen Detected H (NotDetected) U Tricyclic Antidepress Detected H (NotDetected) Ur Phencyclidine Scrn Not Detected (NotDetected) Ur Amphetamines Screen Detected H (NotDetected) U Methamphetamines Scrn Not Detected (NotDetected) U Benzodiazepines Scrn Detected H (NotDetected) Urine Cocaine Screen Not Detected (NotDetected) U Marijuana (THC) Screen Detected H (NotDetected) Serum Alcohol <10 mg/dL - Radiology Data Radiology results: report reviewed (Noncontrast head CT is negative) Disposition Clinical Impression: Acute psychosis, Polysubstance abuse Narrative: Excited delirium, Possible seizure Disposition: ADMITTED IP TO THIS [facility] Condition: Stable Is patient prescribed a controlled substance at d/c from ED?: No Referrals: Dwaine Ruby DO [Primary Care Provider] - 1-2 days Time of Disposition: 21:06
[2021-02-17] MEDS ORDERED: SODIUM CHLORIDE 0.9% 1,000 ML IV STA (16:46)
[2021-02-17 17:21] LABS: HCT 47.2 % (34.0-46.0); HGB 15.8 gm/dL (11.4-16.0); MCH 32.2 pg (25.0-35.0); MCHC 33.5 g/dL (31.0-37.0); Mean Platelet Volume 9.6; Platelet Count 378 k/uL (150-450); RBC 4.92 m/uL (3.80-5.40); WBC 24.9 k/uL (3.8-10.6)
[2021-02-17 17:31] LABS: AST 41 U/L (14-36); Acetaminophen <10.0 ug/mL; African American GFR (CKD) >90 (>60 ml/min/1.73 sqM); Alcohol <10 mg/dL; Alkaline Phosphatase 104 U/L (38-126); Anion Gap 20 mmol/L; Blood Urea Nitrogen 9 mg/dL (7-17); Calcium 10.1 mg/dL (8.4-10.2); Carbon Dioxide 13 mmol/L (22-30); Chloride 108 mmol/L (98-107); Glucose 150 mg/dL (74-99); Magnesium 2.3 mg/dL (1.6-2.3); Non-African American GFR(CKD) >90 (>60 ml/min/1.73 sqM); Potassium 3.9 mmol/L (3.5-5.1); Salicylate <1.0 mg/dL; Sodium 141 mmol/L (137-145); Total Bilirubin 0.3 mg/dL (0.2-1.3); Total Protein 8.1 g/dL (6.3-8.2)
[2021-02-17 17:37] LABS: ALT 42 U/L (4-34)
[2021-02-17 17:48] LABS: HCG,Qualitative Serum Not Detected
[2021-02-17 18:03] LABS: Eosinophils # (M) 0.75 k/uL (0-0.7); Lymphocytes # (M) 7.22 k/uL (1.0-4.8); Monocytes # (M) 0.75 k/uL (0-1.0); Neutrophils # (M) 16.19 k/uL (1.3-7.7); Neutrophils % (M) 65 %; Nucleated Red Blood Cells 0 /100 WBC (0-0); Total Cells Counted 100
--- NOTE | 2021-02-17 19:34 | CT ---
EXAMINATION TYPE: CT brain wo con DATE OF EXAM: 02/17/2021 COMPARISON: 10/23/2018 HISTORY: ams, seizure CT DLP: 1078.4 mGycm Automated exposure control for dose reduction was used. Ventricles have normal size. There is no mass effect nor midline shift. There is no sign of intracran ial hemorrhage. Calvarium is intact. Skull base is intact. There is normal aeration of the mastoid si nuses. IMPRESSION: Negative CT scan of the brain. No change.
[2021-02-17 20:56] LABS: Amphetamine Screen,Urine Detected (NotDetected); Benzodiazepines Screen,Urine Detected (NotDetected); Cocaine Screen,Urine Not Detected (NotDetected); Methadone Screen, Urine Not Detected (NotDetected); Opiate Screen,Urine Not Detected (NotDetected); Phencyclidine Screen,Urine Not Detected (NotDetected); Tricyclic Antidepressant,Urine Detected (NotDetected); Urn Cannabinoid Scrn Detected (NotDetected)
[2021-02-17 20:57] LABS: Barbiturate Screen,Urine Detected (NotDetected); Oxycodone Screen, Urine Not Detected (NotDetected)
[2021-02-17 20:58] LABS: Appearance,Urine Cloudy (Clear); Bilirubin,Urine Negative (Negative); Blood,Urine Negative (Negative); Color,Urine Yellow; Glucose,Urine (UA) Negative (Negative); Ketones,Urine 1+ (Negative); Leukocyte Esterase,Urine Negative (Negative); Mucus,Urine Moderate /hpf; Nitrite,Urine Negative (Negative); Protein,Urine Trace (Negative); RBC,Urine 2 /hpf (0-5); Specific Gravity,Urine 1.027 (1.001-1.035); Squamous Epithelial Cell,Urine 8 /hpf (0-4); WBC,Urine 7 /hpf (0-5)
[2021-02-17] MEDS ORDERED: ALPRAZolam 0.5 MG TAB PO PRN (21:12)
[2021-02-17] MEDS ORDERED: SUMAtriptan succinate 50 MG TAB PO PRN (21:12)
--- NOTE | 2021-02-18 00:57 | P.HPIM ---
History of Present Illness H&P Date: 02/17/21 Chief Complaint: suspected seizure like activity 40 year old female with history of seizure. patient brought in here by EMS, for her boyfriend suspected seizure like activi ty . patient unable to provide any meaningful history , she is sedated due to combative behavior earlier . I attempted to contact her Brannon angulo at [phone] but no one answered the phone . patient RN reported some recent changes in patient meds, possibly stopped, and now her boyfriend suspected seizure like behavior , no further details available . upon arrival to the ED, she was combative using abusive language and resisting care, ED staff had to restrain and medicate her to calm her down she currently is arousable but drift back to sleep quickly , I could not obtain any meaningful history from her. CT brain no acute pathology leukocytosis , no identifiable focus of infection acidosis ,no lactic acid available upon time of eval alcohol level negative UA unremarkable , Review of Systems ROS unobtainable: due to mental status Past Medical History Past Medical History: Hyperlipidemia, Seizure Disorder Additional Past Medical History / Comment(s): ovarian cyst chronic back pain ddd bipolar, migraines History of Any Multi-Drug Resistant Organisms: None Reported Past Surgical History: Section Additional Past Surgical History / Comment(s): medical history - migraines, DDD. surgical history - laproscopy for ovarian cyst Past Anesthesia/Blood Transfusion Reactions: No Reported Reaction Past Psychological History: Anxiety, Bipolar, Depression Smoking Status: Never smoker Past Alcohol Use History: Occasional Past Drug Use History: Cocaine, Marijuana - Past Family History Mother History Unknown: Yes Family Medical History: Cancer, Coronary Artery Disease (CAD), Hyperlipidemia, Hypertension Medications and Allergies Home Medications Medication Instructions Recorded Confirmed Type ALPRAZolam [Xanax] 0.5 mg PO BID PRN 02/17/21 02/17/21 History Benztropine Mesylate 1 mg PO BID 02/17/21 02/17/21 History Butalb/APAP/Caff 50-325-40Mg 1 tab PO BID PRN 02/17/21 02/17/21 History [Fioricet 50-325-40] QUEtiapine [SEROquel] 50 mg PO BID 02/17/21 02/17/21 History Rizatriptan Benzoate [Rizatriptan] 10 mg PO DAILY PRN 02/17/21 02/17/21 History lamoTRIgine [LaMICtal] 1 dose PO DIRECTED 02/17/21 02/17/21 History Allergies Allergy/AdvReac Type Severity Reaction Status Date / Time aspirin Allergy Nausea & Verified 10/23/18 08:20 Vomiting cephalexin monohydrate Allergy Rash/Hives Verified 10/23/18 08:20 [From Keflex] morphine Allergy Unknown Verified 10/23/18 08:20 propanolol Allergy Rash/Hives Uncoded 09/28/16 12:30 Physical Exam Vitals: Vital Signs Temp Pulse Resp BP Pulse Ox 02/17/21 23:30 74 18 106/71 99 02/17/21 18:18 85 16 112/89 98 02/17/21 16:21 98.9 F 67 16 121/81 97 Intake and Output 02/17/21 02/17/21 02/18/21 14:59 22:59 06:59 Other: Weight 72.575 kg limited exam , patient uncooperative , sleepy Constitutional: sedated , arousable , but drifts back to sleep quickly Eyes: Anicteric sclerae, moist conjunctiva, Pupils equal round reactive to light ENMT: NC/AT Oropharynx clear, no erythema, or exudates Neck: Supple, no masses, or JVD No carotid bruits No thyromegaly Lungs: Clear to auscultation Clear to percussion Normal respiratory effort, no accessory muscle use Cardiovascular: Heart regular in rate and rhythm, No murmurs, gallops, or rubs No peripheral edema Abdominal: Soft Nontender, no guarding, rebound or rigidity Abdomen moving with respiration Normoactive bowel sounds No hepatomegaly, No splenomegaly No palpable mass No abdominal wall hernia noted Skin: Normal temperature, tone, texture, turgor No induration No subcutaneous nodules No rash, lesions No ulcers Extremities: No digital cyanosis No clubbing Pedal pulses intact and symmetrical Radial pulses intact and symmetrical No calf tenderness Psychiatric: sedated Neuro could not cooperate with neuro exam Lymphatics: no palpable cervical or supraclavicular , or inguinal lymph nodes Results CBC & Chem 7: 02/17/21 17:17 02/17/21 17:17 Labs: Abnormal Lab Results - Last 24 Hours (Table) 08/23/21 08/23/21 08/23/21 Range/Units 17:17 17:17 20:20 WBC 24.9 H (3.8-10.6) k/uL Hct 47.2 H (34.0-46.0) % Neutrophils # (Manual) 16.19 H (1.3-7.7) k/uL Lymphocytes # (Manual) 7.22 H (1.0-4.8) k/uL Eosinophils # (Manual) 0.75 H (0-0.7) k/uL Chloride 108 H (98-107) mmol/L Carbon Dioxide 13 L (22-30) mmol/L Glucose 150 H (74-99) mg/dL AST 41 H (14-36) U/L ALT 42 H (4-34) U/L Urine Appearance Cloudy H (Clear) Urine Protein Trace H (Negative) Urine Ketones 1+ H (Negative) Urine WBC 7 H (0-5) /hpf Ur Squamous Epith Cells 8 H (0-4) /hpf Urine Mucus Moderate H (None) /hpf Ur Barbiturates Screen Detected H (NotDetected) U Tricyclic Antidepress Detected H (NotDetected) Ur Amphetamines Screen Detected H (NotDetected) U Benzodiazepines Scrn Detected H (NotDetected) U Marijuana (THC) Screen Detected H (NotDetected) Assessment and Plan Assessment: suspected poly substance abuse seizure like activity , with history of seizures supportive care IVF hydration with normal saline seizure precautions neuro and psych eval check EEG CT brain negative leukocytosis with out focus of infection monitor vital signs supportive care UA negative no URI symptoms reported acidosis check lactic acid IVF hydration monitor electrolytes patient is full code anticipated length of stay <2 midnights DVT PPX mechanical A total of 60 minutes was spent on the care of this complex patient more than 50% of the time was spent in counseling and care coordination.
[2021-02-18] MEDS: lamoTRIgine 25 MG TAB PO SCH ×2 (01:01→09:28)
[2021-02-18 03:31] LABS: Basophils # (A) 0.1 k/uL (0-0.2); Basophils % (A) 1 %; Eosinophils # (A) 0.5 k/uL (0-0.7); Eosinophils % (A) 5 %; HCT 42.1 % (34.0-46.0); HGB 14.1 gm/dL (11.4-16.0); Lymphocytes # (A) 2.5 k/uL (1.0-4.8); Lymphocytes % (A) 26 %; MCHC 33.5 g/dL (31.0-37.0); MCV 95.6 fL (80.0-100.0); Mean Platelet Volume 9.3; Monocytes # (A) 0.5 k/uL (0-1.0); Monocytes % (A) 5 %; Neutrophils # (A) 6.1 k/uL (1.3-7.7); Neutrophils % (A) 62 %; Platelet Count 226 k/uL (150-450); RDW 12.7 % (11.5-15.5); WBC 9.8 k/uL (3.8-10.6)
[2021-02-18 03:53] LABS: ALT 32 U/L (4-34); AST 29 U/L (14-36); African American GFR (CKD) >90 (>60 ml/min/1.73 sqM); Alkaline Phosphatase 80 U/L (38-126); Anion Gap 6 mmol/L; Blood Urea Nitrogen 11 mg/dL (7-17); Calcium 9.1 mg/dL (8.4-10.2); Carbon Dioxide 23 mmol/L (22-30); Chloride 110 mmol/L (98-107); Glucose 89 mg/dL (74-99); Non-African American GFR(CKD) >90 (>60 ml/min/1.73 sqM); Potassium 3.8 mmol/L (3.5-5.1); Sodium 139 mmol/L (137-145); Total Bilirubin 0.2 mg/dL (0.2-1.3); Total Protein 6.7 g/dL (6.3-8.2)
[2021-02-18] MEDS: SODIUM CHLORIDE 0.9% 1,000 ML IV SCH ×2 (04:02→10:45)
[2021-02-18] MEDS ORDERED: QUEtiapine 50 MG TAB PO STA (04:14)
[2021-02-18] MEDS ORDERED: HALOPERIDOL LACTATE 5 MG/ML 1 ML VIAL IVP PRN (07:56)
[2021-02-18] MEDS: LORazepam 2 MG/ML INJ IV PRN ×4 (08:28→21:43)
[2021-02-18] MEDS ORDERED: QUEtiapine 50 MG TAB PO SCH (09:00)
[2021-02-18] MEDS: BENZTROPINE MESYLATE 1 MG TAB PO SCH ×2 (09:28→09:51)
[2021-02-18] MEDS: ACETAMINOPHEN TAB 325 MG TAB PO PRN (09:53)
--- NOTE | 2021-02-18 12:47 | P.PN ---
Subjective Progress Note Date: 02/18/21 Pt was quite agitated this morning, very aggressive demeanor. Became upset that she may have to get meds titrated for seizures or psychosis. Is angry at me that I can't tell her what time the neurology doctor will be by to see her. I have concerns about psychosis from substance use versus underlying mental health disorder and at this time I do not believe patient has capacity to leave AMA. I spoke to her fiance separately regarding this issue. We will obtain psychiatry consultation as well. Objective - Vital Signs Vital signs: Vital Signs Temp 98.9 F 02/17/21 16:21 Pulse 76 02/18/21 07:58 Resp 16 02/18/21 07:58 BP 111/67 02/18/21 07:58 Pulse Ox 98 02/18/21 07:58 Intake & Output 02/17/21 02/18/21 02/18/21 18:59 06:59 18:59 Weight 72.575 kg - Exam Gen: awake, alert, agitated HEENT: normocephalic, atraumatic, good hearing acuity, moist mucous membranes Resp: good air exchange, breathing comfortably with no accessory muscle use Neuro: non-focal, moving all extremities Psych: uncooperative, agitated mood - Labs CBC & Chem 7: 02/18/21 03:06 02/18/21 03:06 Labs: Abnormal Lab Results - Last 24 Hours (Table) 02/17/21 02/17/21 02/17/21 Range/Units 17:17 17:17 20:20 WBC 24.9 H (3.8-10.6) k/uL Hct 47.2 H (34.0-46.0) % Neutrophils # (Manual) 16.19 H (1.3-7.7) k/uL Lymphocytes # (Manual) 7.22 H (1.0-4.8) k/uL Eosinophils # (Manual) 0.75 H (0-0.7) k/uL Chloride 108 H (98-107) mmol/L Carbon Dioxide 13 L (22-30) mmol/L Glucose 150 H (74-99) mg/dL Plasma Lactic Acid Khanh (0.7-2.0) mmol/L AST 41 H (14-36) U/L ALT 42 H (4-34) U/L Urine Appearance Cloudy H (Clear) Urine Protein Trace H (Negative) Urine Ketones 1+ H (Negative) Urine WBC 7 H (0-5) /hpf Ur Squamous Epith Cells 8 H (0-4) /hpf Urine Mucus Moderate H (None) /hpf Ur Barbiturates Screen Detected H (NotDetected) U Tricyclic Antidepress Detected H (NotDetected) Ur Amphetamines Screen Detected H (NotDetected) U Benzodiazepines Scrn Detected H (NotDetected) U Marijuana (THC) Screen Detected H (NotDetected) 02/18/21 02/18/21 Range/Units 00:42 03:06 WBC (3.8-10.6) k/uL Hct (34.0-46.0) % Neutrophils # (Manual) (1.3-7.7) k/uL Lymphocytes # (Manual) (1.0-4.8) k/uL Eosinophils # (Manual) (0-0.7) k/uL Chloride 110 H (98-107) mmol/L Carbon Dioxide (22-30) mmol/L Glucose (74-99) mg/dL Plasma Lactic Acid Khanh 0.6 L (0.7-2.0) mmol/L AST (14-36) U/L ALT (4-34) U/L Urine Appearance (Clear) Urine Protein (Negative) Urine Ketones (Negative) Urine WBC (0-5) /hpf Ur Squamous Epith Cells (0-4) /hpf Urine Mucus (None) /hpf Ur Barbiturates Screen (NotDetected) U Tricyclic Antidepress (NotDetected) Ur Amphetamines Screen (NotDetected) U Benzodiazepines Scrn (NotDetected) U Marijuana (THC) Screen (NotDetected) Assessment and Plan Assessment: 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
[2021-02-18] MEDS ORDERED: ZIPRASIDONE 20 MG VIAL IM PRN (13:29)
--- NOTE | 2021-02-18 13:41 | P.CN ---
Psychiatric Consult - . Consult date: 02/18/21 Consult:: 02/18/21 11:39 IDENTIFYING DATA: This patient is a 40-year-old female who is currently engaged to her fianc and lives with a friend has 3 kids and collects Social Security disability. REASON FOR REFERRAL: Psychiatry was consulted for polysubstance abuse HISTORY OF PRESENT ILLNESS: The patient presented to the hospital by EMS after patient's boyfriend apparently reported patient having a seizure. Patient was fairly aggressive and combative with staff and was hostile. Patient required 4 point restraints. Patient had a computed tomography scan of her head which was negative. Her WBCs were initially elevated at 24.9 however improved to within normal limits. Patient also had mild elevation in her AST/ALT which are now improved. Her UDS was positive for barbiturates, TCAs, amphetamines and THC. Patient's nurse claims that patient has been irritable at times and swearing however has improved significantly since coming into the hospital. Patient was seen today in the ER and claims that she came in the hospital for "seizures and tremors" and was somewhat irritable during conversation. She states that she has been taking Lamictal for approximately one week and claims that she is been having an adverse reaction to it. She describes twitching in her neck and other erratic abnormal neurological movements. She states that she's been having this for approximately 7 days now and stopped taking the medication for nights ago. She states that she has a history of schizoaffective disorder and bipolar disorder. She states that her [employer]CH[employer]IC started her on Lamictal a couple of weeks ago. She states that she also has been having a headache. She described history of manic episodes in the past. She states that she has been taking her Seroquel for months now and feels that it is helped her significantly and is not reporting any adverse events from it. She states that she is not having any depression however was tearful when speaking about her children and was persistent on wanting to go home. She was cooperative enough to state that she will take medications. She states that she has a history of hearing voices however is not currently hearing any voices. At this time patient denies any suicidal or homical ideations, intent or plan. Patient denies any auditory, visual hallucinations and denies any paranoia or delusions. Patients admits to using Cigarettes daily and claims that she quit using cocaine several years ago. She denies any alcohol use. PAST PSYCHIATRIC HISTORY: Patient has a a history of schizoaffective, bipolar and anxiety. She is currently on Lamictal and Seroquel. She claims that she was last psychiatrically hospitalized in [place] in 2006 after her first and only suicide attempt where she overdosed on Tylenol. Claims that she has a tele-psychiatry appointment next week in [place]. Past Medical History: Hyperlipidemia, Seizure Disorder Additional Past Medical History / Comment(s): ovarian cyst chronic back pain ddd bipolar, migraines ALLERGIES: as per EMR. CHEMICAL DEPENDENCY HISTORY: as per HPI. FAMILY PSYCHIATRIC/SUBSTANCE USE HISTORY: She states that her father has schizophrenia. SOCIAL HISTORY: Patient was born and raised in [facility]. She states that she moved around a lot as a child growing up. She claims that she completed her GED and returned back to get some college credits. She claims that she was in long-term for possession of marijuana in the past. She has 3 kids. She currently is engaged with her fianc and lives with a friend.. MENTAL STATUS EXAM: General Appearance: Patient appears to be stated age is alert, tearful at times however times to cooperative. Patient appears to have poor hygiene and grooming wearing hospital gown with fair eye contact. Behavior: Patient is calmly lying in bed without any agitated behavior. Irritable at times. Speech: Patient's speech is fluent and nonpressured. Mood/Affect: Patient reports their mood is "fine", affect is incongruent Suicidality/Homicidality: Patient denies having any suicidal or homicidal ideation intent or plan. Perceptions: Patient denies any visual hallucinations and denies any auditory hallucinations Though content/process: There is no evidence of any delusional thought content and thought process is linear and goal-directed. Focused on her medications and on discharge. Memory and concentration: AOX3, grossly intact for the purposes of this session. Can spell "WORLD" backwards Judgment and insight: poor IMPRESSIONS: Schizoaffective disorder, bipolar type Anxiety disorder unspecified rule out extra pyramidal symptoms from psychotropic medications Cannabis use disorder Nicotine dependence PLAN: -At this time patient DOES NOT meet criteria for inpatient psychiatric admission however will continue to follow along to see if patient will meet criteria. -Would recommend the following medication changes/additions: Discontinue Lamictal as per patient's request. Increase Seroquel to 50 mg daily +100 mg daily at bedtime for mood stabilization/insomnia. Change Cogentin to 1 mg twice a day when necessary for EPS reaction/muscle spasms. Discontinue Xanax and replace with Klonopin 0.5 mg twice a day for anxiety. Geodon when necessary IM for agitation. -Continue 1:1 sitter for safety -Cannot leave AMA at this time. Patient will need a petition and certification if attempting to leave AMA. -Communicated plan to patient's nurse -Will continue to follow along to see if patient does require inpatient psych Please contact with any questions.
[2021-02-18] MEDS: clonazePAM 0.5 MG TAB PO SCH ×2 (13:55→20:05)
--- NOTE | 2021-02-18 18:06 | EEG ---
ELECTROENCEPHALOGRAM REPORT DATE OF SERVICE: 02/18/2021 PREAMBLE: This is a 40-year-old female with some seizure-like activity. This study is performed to evaluate for any epileptiform activity. EEG FINDINGS: This is a 21-channel routine EEG recording in a patient utilizing 10/20 international system with referential and bipolar montages. Background consists of well- developed, moderately well regulated, predominantly low-voltage fast frequency beta activity intermixed with some mild to moderate amplitude theta activity. Background seems to be slightly reactive to eye opening and closing. The patient declined photic stimulation. Different stages of sleep were not seen. No focal or generalized epileptiform activity was seen. IMPRESSION: This is a mildly abnormal EEG due to presence of excessive low-voltage fast frequency beta activity, with mild intermittent slowing, suggestive of mild encephalopathy and/or medication effect. No epileptiform activity was seen. MMODL / IJN: [id number] / MTDD
[2021-02-18] MEDS: BUTALB/APAP/CAFF 50-325-40MG TAB PO PRN (18:16)
[2021-02-18] MEDS: BENZTROPINE MESYLATE 1 MG TAB PO PRN (18:39)
[2021-02-18] MEDS ORDERED: QUEtiapine 100 MG TAB PO SCH (21:00)
--- NOTE | 2021-02-19 00:02 | P.CNNES ---
History of Present Illness Consult date: 02/18/21 Requesting physician: Kena Guardado Reason for Consult: Seizure-like activity History of Present Illness: Patient is a 40-year-old female who has history of "pseudoseizures" came to the hospital because of some side effects from psych medication. Patient states that her primary physician placed her back on Lamictal which was started about 2 weeks ago. It gave her a headache. She was also having trembling, versus seizure type activity. Patient says that she has history of seizures since 2011, when the seizures came from "nowhere". She was found to have brain lesions in 2011. 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 Patient states that she was following up with Dr. Corrales, who was giving her excessive doses of Topamax and Keppra. She also had history of substance abuse with use of cocaine in the past. Patient states that she used to be like a zombie when she was on those medications. Since she started seeing Dr. Locke 6-10 years ago, she is doing much better. She has not had any seizure in for a long time. Since she was started on Lamictal, she has been having m igraines. Prior to starting Lamictal, she was not on any seizure medication. She describes her seizures as some staring spells,, sometimes with "little twitching". Patient's computed tomography scan of the head was negative, with no acute process. EKG shows normal sinus rhythm. Patient had a MRI of cervical spine on 11/06/2014, which revealed focal left paramedian disc bulge at C5 6 producing slight cord contact. Patient CTA of the head from 10/23/2018 was normal. Patient's blood test shows WBC was 24.9, but now down to 9.8. Hemoglobin 14.1 and platelets are normal. Chem-20 showed mildly elevated LFTs, but repeat testing is normal. UA is negative. Urine drug screen positive for barbiturate, tricyclics, amphetamines, benzodiazepine and marijuana. Blood alcohol level negative. Patient at present is laying comfortably in the bed. She appears somewhat anxious. Review of Systems As above in detail. Denies any chest pain shortness of breath wheezing or cough. Denies any abdominal pain nausea vomiting diarrhea. Denies any double vision, loss of vision. Denies any hoarseness, sore throat, dysphagia. Denies hearing loss. Past Medical History Past Medical History: Hyperlipidemia, Seizure Disorder Additional Past Medical History / Comment(s): ovarian cyst chronic back pain ddd bipolar, migraines History of Any Multi-Drug Resistant Organisms: None Reported Past Surgical History: Section Additional Past Surgical History / Comment(s): medical history - migraines, DDD. surgical history - laproscopy for ovarian cyst Past Anesthesia/Blood Transfusion Reactions: No Reported Reaction Past Psychological History: Anxiety, Bipolar, Depression Smoking Status: Never smoker Past Alcohol Use History: Occasional Past Drug Use History: Cocaine, Marijuana - Past Family History Mother History Unknown: Yes Family Medical History: Cancer, Coronary Artery Disease (CAD), Hyperlipidemia, Hypertension Medications and Allergies Home Medications Medication Instructions Recorded Confirmed Type ALPRAZolam [Xanax] 0.5 mg PO BID PRN 02/17/21 02/17/21 History Benztropine Mesylate 1 mg PO BID 02/17/21 02/17/21 History Butalb/APAP/Caff 50-325-40Mg 1 tab PO BID PRN 02/17/21 02/17/21 History [Fioricet 50-325-40] QUEtiapine [SEROquel] 50 mg PO BID 02/17/21 02/17/21 History Rizatriptan Benzoate [Rizatriptan] 10 mg PO DAILY PRN 02/17/21 02/17/21 History lamoTRIgine [LaMICtal] 1 dose PO DIRECTED 02/17/21 02/17/21 History Allergies Allergy/AdvReac Type Severity Reaction Status Date / Time aspirin Allergy Nausea & Verified 10/23/18 08:20 Vomiting cephalexin monohydrate Allergy Rash/Hives Verified 10/23/18 08:20 [From Keflex] Parker And Derivatives Allergy Rash/Hives Verified 02/18/21 15:32 [Parker] morphine Allergy Unknown Verified 10/23/18 08:20 propanolol Allergy Rash/Hives Uncoded 09/28/16 12:30 Physical Examination - Vital Signs Vital Signs: Vital Signs Temp Pulse Resp BP Pulse Ox 02/18/21 07:58 76 16 111/67 98 02/17/21 23:30 74 18 106/71 99 02/17/21 18:18 85 16 112/89 98 02/17/21 16:21 98.9 F 67 16 121/81 97 Intake and Output 02/17/21 02/18/21 02/18/21 22:59 06:59 14:59 Other: Weight 72.575 kg Patient is a young female, in no acute distress. Patient is alert awake oriented to time place and person. Speech and language functions are normal. Attention, concentration and fund of knowledge is adequate. Patient knows it is January 2021 and that she is in [facility]. On cranial examination, pupils are equal, dilated about 5 mm, round and reacting to light, visual franz are full on confrontation, extraocular muscles are intact with no nystagmus. Face is symmetric, tongue protrudes to the midline. Palatal elevation and sensation normal, hearing and shoulder shrug normal, facial sensation normal. Shoulder shrug normal. On muscle strength testing, there is no pronator drift and the strength is normal in arms and legs distally and proximally. Deep tendon reflexes are symmetric, 1 at the biceps, 0 brachioradialis, 0 at the knees, trace ankles and plantars are downgoing bilaterally. No clonus. Sensory to touch is equal with no neglect. Cerebellar function showed questionable ataxia for [id number] testing on the left, but repeat testing was normal. No dysdiadochokinesia. Tone and bulk of muscles normal. Patient tends to move her head back and forth and sometimes her body, which appears functional in nature, although extrapyramidal (TD vs dystonic) movements from use of antipsychotics also a possibility. No evidence of parkinsonism. Gait deferred. Sitter was also present. On general examination, there is no carotid bruit or murmur, S1-S2 audible. Abdomen is soft nontender. Chest is clear. Peripheral pulses are present. No edema. Results - Laboratory Findings CBC and BMP: 02/18/21 03:06 02/18/21 03:06 Abnormal Lab Findings: Abnormal Labs 02/17/21 02/17/21 02/17/21 17:17 17:17 20:20 WBC 24.9 H Hct 47.2 H Neutrophils # (Manual) 16.19 H Lymphocytes # (Manual) 7.22 H Eosinophils # (Manual) 0.75 H Chloride 108 H Carbon Dioxide 13 L Glucose 150 H Plasma Lactic Acid Khanh AST 41 H ALT 42 H Urine Appearance Cloudy H Urine Protein Trace H Urine Ketones 1+ H Urine WBC 7 H Ur Squamous Epith Cells 8 H Urine Mucus Moderate H Ur Barbiturates Screen Detected H U Tricyclic Antidepress Detected H Ur Amphetamines Screen Detected H U Benzodiazepines Scrn Detected H U Marijuana (THC) Screen Detected H 02/18/21 02/18/21 00:42 03:06 WBC Hct Neutrophils # (Manual) Lymphocytes # (Manual) Eosinophils # (Manual) Chloride 110 H Carbon Dioxide Glucose Plasma Lactic Acid Khanh 0.6 L AST ALT Urine Appearance Urine Protein Urine Ketones Urine WBC Ur Squamous Epith Cells Urine Mucus Ur Barbiturates Screen U Tricyclic Antidepress Ur Amphetamines Screen U Benzodiazepines Scrn U Marijuana (THC) Screen Assessment and Plan Assessment: * Seizure type activity, likely nonepileptic in nature. * Tremors, appears functional. Extrapyramidal side effects also in the differential. * Schizoaffective disorder, bipolar type and anxiety disorder, as per psychiatrist. * Marijuana use. * Previous history of substance abuse. Plan: * Patient underwent EEG, which was mildly abnormal due to presence of excessive low voltage fast frequency beta with mild intermittent slowing suggestive of mild encephalopathy or medication effect. No epileptiform activity was seen. * No indication for antiepileptic medication. * Lamictal has been discontinued * Patient has been started on benztropine 1 mg daily when necessary for muscle spasms. Also on clonazepam. Psychiatry following the patient. * We will check TSH, B12, folate.
[2021-02-19] MEDS ORDERED: LORazepam 2 MG/ML INJ IV STA (00:53)
[2021-02-19] MEDS: SODIUM CHLORIDE 0.9% 1,000 ML IV SCH ×2 (01:24→12:18)
[2021-02-19] MEDS: ACETAMINOPHEN TAB 325 MG TAB PO PRN ×3 (04:18→14:19)
[2021-02-19] MEDS: LORazepam 2 MG/ML INJ IV PRN ×2 (04:29→08:46)
[2021-02-19] MEDS: clonazePAM 0.5 MG TAB PO SCH (07:51)
[2021-02-19] MEDS: BENZTROPINE MESYLATE 1 MG TAB PO PRN (07:52)
[2021-02-19 07:58] VITALS: RESP 18
[2021-02-19] MEDS: BUTALB/APAP/CAFF 50-325-40MG TAB PO PRN (08:24)
[2021-02-19] MEDS ORDERED: QUEtiapine 50 MG TAB PO SCH (09:00)
[2021-02-19] MEDS ORDERED: lamoTRIgine 25 MG TAB PO SCH ×2 (09:00→21:00)
[2021-02-19] MEDS ORDERED: BENZTROPINE MESYLATE 0.5 MG TAB PO PRN (13:47)
--- NOTE | 2021-02-19 13:59 | P.PN ---
Progress Note - Text Progress Note Date: 02/19/21 Interval History: Patient was seen today for psychiatric follow-up. Patient's nurse states that patient has been you're unable at times and hostile toward staff. Patient did take a Cogentin earlier this morning for muscle spasms. Patient was seen at the bedside today by technical report writer and appeared to be jerking her head backwards several times, more than yesterday. She also had stuttering in her voice today and claims that she is feeling upset because her "seizures" are not under control. She claims that she had several seizures earlier this morning however when asked to describe what occurred she claims that "I don't know". She claims that her mood is "about the same" and is denying any depression today however did state that she has mood swings. She claims that she slept fairly last night. At this time patient denies any suicidal or homical ideations, intent or plan. Patient denies any auditory, visual hallucinations and denies any paranoia or delusions. Patient denies any side effects from the medications and has been compliant with meds. Mental Status Exam: General Appearance: Patient appears to be stated age is alert, not tearful today and attempts to cooperate. Patient appears to have improving hygiene and grooming wearing hospital gown with fair eye contact. Behavior: Patient is calmly lying in bed without any agitated behavior. Irritable at times, improving mildly Speech: Patient's speech is fluent and nonpressured. Mood/Affect: Patient reports their mood is "the same", affect is incongruent Suicidality/Homicidality: Patient denies having any suicidal or homicidal ideation intent or plan. Perceptions: Patient denies any visual hallucinations and denies any auditory hallucinations Though content/process: There is no evidence of any delusional thought content and thought process is linear and goal-directed. Focused on her medications Memory and concentration: AOX3, grossly intact for the purposes of this session. Judgment and insight: poor, improving mildly Assessment Schizoaffective disorder, bipolar type Anxiety disorder unspecified rule out extra pyramidal symptoms from psychotropic medications Cannabis use disorder Nicotine dependence Plan: -Currently patient DOES NOT meet criteria for inpatient psychiatric admission however will continue to follow along to see if patient will meet criteria as patient continues to have increasing/severe abnormal body/head movements. -Would recommend the following medication changes/additions: D/c seroquel at this time as eventhough it has a very low risk of EPS/Tardive potential it still theoretically can cause it. Switched to Depakote 500mg bid for mood stabilization. Cogentin to 1 mg twice a day when necessary for EPS reaction/muscle spasms. Klonopin 0.5 mg twice a day for anxiety. Geodon when necessary IM for agitation. -At this time patient has been denying SI however continue to monitor closely for need of possibly starting 1:1 sitter. -Cannot leave AMA at this time. Patient will need a petition and certification if attempting to leave AMA. -Communicated plan to patient's nurse -Spoke with Dr. Mcarthur from neurology who agrees with above mentioned plan. -Will continue to follow along Please contact with any questions.
[2021-02-19] MEDS ORDERED: DIVALPROEX ER 500 MG TAB.ER.24H PO SCH (14:00)
--- NOTE | 2021-02-19 14:42 | P.PN ---
Subjective Progress Note Date: 02/19/21 Pt continues to demonstrate agitated behavior with labile mood. Continues to have shaky body movements. Medications being adjusted by psychiatry. Objective - Vital Signs Vital signs: Vital Signs Temp 98.3 F 02/19/21 06:54 Pulse 93 02/19/21 06:54 Resp 18 02/19/21 06:54 BP 132/89 02/19/21 06:54 Pulse Ox 100 02/19/21 06:54 Intake & Output 02/18/21 02/19/21 02/19/21 18:59 06:59 18:59 Other: Voiding Method Toilet # Voids 2 # Bowel Movements 0 - Exam Gen: awake, alert, agitated HEENT: normocephalic, atraumatic, good hearing acuity, moist mucous membranes Resp: good air exchange, breathing comfortably with no accessory muscle use Neuro: non-focal, moving all extremities Psych: uncooperative, agitated mood - Labs CBC & Chem 7: 02/18/21 03:06 02/18/21 03:06 Assessment and Plan Assessment: 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
[2021-02-19 14:43] VITALS: BP 108/66; PULSE 63; TEMP 98.5
--- NOTE | 2021-02-19 16:20 | P.PN ---
Subjective Progress Note Date: 02/19/21 Patient was seen for a follow-up. Patient states that she is getting worse. Her head shaking is getting worse. Her whole body hurts from shakes. Her shoulders arms but cheeks hurt. Also spoke to Dr. Serrano. Patient does have mood disorder, no suicidal ideation, no homicidal ideation. Patient is currently on Seroquel 50 g in the morning 100 mg at night. Also on Cogentin as needed. Patient has received Haldol in the past, but very long time ago. Patient does not have any obvious mouth movements suggestive of tardive dyskinesia. Objective - Vital Signs Vital signs: Vital Signs Temp 98.3 F 02/19/21 06:54 Pulse 93 02/19/21 06:54 Resp 18 02/19/21 06:54 BP 132/89 02/19/21 06:54 Pulse Ox 100 02/19/21 06:54 Intake & Output 02/18/21 02/19/21 02/19/21 18:59 06:59 18:59 Other: Voiding Method Toilet # Voids 2 # Bowel Movements 0 - Exam Patient's mental status, speech and language functions are normal. Patient continues to have intermittent arrhythmic asynchronous head jerking/tremoring, no tremors noted. I had patient walk, and she was able to get up, but was walking with complete S Astasia-abasia. She would hyperextend her legs, then take a few rapid steps and then would tend to fall, and her boyfriend would try to catch her. It did not appear cerebellar, spastic or parkinsonian gait. Appears psychogenic. - Labs CBC & Chem 7: 02/18/21 03:06 02/18/21 03:06 Assessment and Plan Assessment: * Seizure type activity, likely nonepileptic in nature. * Tremors, appears functional. Extrapyramidal side effects also in the differential, but unlikely based upon the pattern of the movement. Her gait is functional. * Schizoaffective disorder, bipolar type and anxiety disorder, as per psychiatrist. * Marijuana use. * Previous history of substance abuse. * Folate deficiency Plan: * Patient underwent EEG, which was mildly abnormal due to presence of excessive low voltage fast frequency beta with mild intermittent slowing suggestive of mild encephalopathy or medication effect. No epileptiform activity was seen. * No indication for antiepileptic medication. * Lamictal has been discontinued * Patient has been started on benztropine 1 mg daily when necessary for muscle spasms. Also on clonazepam. Psychiatry following the patient. * TSH 1.75, B12 530, folate 5.0 which is low. We will start folate replacement. RPR nonreactive. * Patient needs to follow-up with the psychiatrist closely. No other neurological workup indicated.
[2021-02-19] MEDS ORDERED: FOLIC ACID 1 MG TAB PO SCH (17:00)
--- NOTE | 2021-02-19 18:04 | P.DS ---
Providers Date of admission: 02/18/21 13:44 Expected date of discharge: 02/19/21 Attending physician: Kena Guardado MD Consults: 02/17/21 21:11 Consult Physician Urgent Consulting Provider: Dwaine Serrano Consult Reason/Comments: Acute psychosis; polysubstance abuse Do you want consulting provider notified?: Already Contacted 02/18/21 00:58 Consult Physician Routine Consulting Provider: Manjula Larkin Consult Reason/Comments: seizure like activity Do you want consulting provider notified?: Yes, Notify in am 02/18/21 10:20 Consult Physician Urgent Consulting Provider: Dmitry Guadalupe Reason/Comments: Psych-verbal from edy guardado Do you want consulting provider notified?: Yes Primary care physician: Dwaine Jhaveri [facility] Course: Pt left AMA after my evaluation today. Patient Condition at Discharge: Stable Plan - Discharge Summary Discharge Rx Participant: No New Discharge Prescriptions: No Action QUEtiapine [SEROquel] 50 mg PO BID Benztropine Mesylate 1 mg PO BID Rizatriptan Benzoate [Rizatriptan] 10 mg PO DAILY PRN PRN Reason: Migraine Headache Butalb/APAP/Caff 50-325-40Mg [Fioricet 50-325-40] 1 tab PO BID PRN PRN Reason: Migraine Headache lamoTRIgine [LaMICtal] 1 dose PO DIRECTED ALPRAZolam [Xanax] 0.5 mg PO BID PRN PRN Reason: Anxiety Discharge Medication List ALPRAZolam [Xanax] 0.5 mg PO BID PRN 02/17/21 [History] Benztropine Mesylate 1 mg PO BID 02/17/21 [History] Butalb/APAP/Caff 50-325-40Mg [Fioricet 50-325-40] 1 tab PO BID PRN 02/17/21 [History] QUEtiapine [SEROquel] 50 mg PO BID 02/17/21 [History] Rizatriptan Benzoate [Rizatriptan] 10 mg PO DAILY PRN 02/17/21 [History] lamoTRIgine [LaMICtal] 1 dose PO DIRECTED 02/17/21 [History] Follow up Appointment(s)/Referral(s): Verellen,Tonia, PAC [REFERRING] - As Needed Discharge Disposition: Left Against Medical Advice
[2021-02-26] MEDS ORDERED: lamoTRIgine 25 MG TAB PO SCH (09:00)
== END 2021-02-19 17:05 | disposition left against medical advice (07) | DRG 885 ==
LOC: EC 16:18 → 1SOBS 21:11 → 6NMEDSUR 02-18 06:50 → 4SSUR 02-18 11:21 → OBSVTOIN 02-18 13:44 → 4SSUR 02-18 19:35
PROVIDERS: ADMIT Internal Medicine; ATTEND Internal Medicine
DX: F25.0 Schizoaffective disorder, bipolar type (principal); E87.2 Acidosis; F17.210 Nicotine dependence, cigarettes, uncomplicated; F12.90 Cannabis use, unspecified, uncomplicated; E78.5 Hyperlipidemia, unspecified; G40.909 Epilepsy, unspecified, not intractable, without status epilepticus; Z78.1 Physical restraint status; F19.159 Other psychoactive substance abuse with psychoactive substance-induced psychotic disorder, unspecified; D72.829 Elevated white blood cell count, unspecified; E53.8 Deficiency of other specified B group vitamins; F41.9 Anxiety disorder, unspecified; Z79.899 Other long term (current) drug therapy; Z88.6 Allergy status to analgesic agent; Z88.1 Allergy status to other antibiotic agents; Z88.8 Allergy status to other drugs, medicaments and biological substances
CPT/HCPCS: 36415; 70450; 80053; 80143; 80179; 80306; 80320; 81001; 82607; 82746; 83605; 83735; 84145; 84443; 84703; 85025; 86780; 93005; 95819; 96360; 96372; 99285

== ENCOUNTER 2021-02-23 01:19 | Emergency (ER) | payer MEDICARE, OTHER ==
[2021-02-23] MEDS ORDERED: ZIPRASIDONE 20 MG VIAL IM STA (01:34)
[2021-02-23] MEDS ORDERED: LORazepam 2 MG/ML INJ IM STA (01:34)
--- NOTE | 2021-02-23 01:59 | ED ---
Psych HPI - General Stated Complaint: Mental Health Time Seen by Provider: 02/23/21 01:30 Source: patient, EMS Mode of arrival: EMS Limitations: altered mental status - History of Present Illness Initial Comments: This patient is a 40-year-old woman who presents with complaint that she has been behaving and bizarre fashion. Patient is hyperverbal, appears to be responding to internal stimuli. Patient has had similar episodes like this after ingesting amphetamine. MD Complaint: other -: hour(s) Associated Psychiatric Symptoms: racing thoughts, delusions History of same: Yes Quality: constant Improves With: none Worsens With: none - Related Data Home Medications Medication Instructions Recorded Confirmed ALPRAZolam [Xanax] 0.5 mg PO BID PRN 02/17/21 02/17/21 Benztropine Mesylate 1 mg PO BID 02/17/21 02/17/21 Butalb/APAP/Caff 50-325-40Mg 1 tab PO BID PRN 02/17/21 02/17/21 [Fioricet 50-325-40] QUEtiapine [SEROquel] 50 mg PO BID 02/17/21 02/17/21 Rizatriptan Benzoate [Rizatriptan] 10 mg PO DAILY PRN 02/17/21 02/17/21 lamoTRIgine [LaMICtal] 1 dose PO DIRECTED 02/17/21 02/17/21 Allergies Allergy/AdvReac Type Severity Reaction Status Date / Time aspirin Allergy Nausea & Verified 10/23/18 08:20 Vomiting cephalexin monohydrate Allergy Rash/Hives Verified 10/23/18 08:20 [From Keflex] [place] And Derivatives Allergy Rash/Hives Verified 02/18/21 15:32 [[place]] morphine Allergy Unknown Verified 10/23/18 08:20 propanolol Allergy Rash/Hives Uncoded 09/28/16 12:30 Review of Systems ROS Statement: Those systems with pertinent positive or pertinent negative responses have been documented in the HPI. ROS Other: All systems not noted in ROS Statement are negative. Limitations: ROS unobtainable due to patients medical condition Constitutional: Denies: fever Respiratory: Denies: cough, dyspnea Cardiovascular: Denies: chest pain Neurological: Denies: headache Past Medical History Past Medical History: Hyperlipidemia, Seizure Disorder Additional Past Medical History / Comment(s): ovarian cyst chronic back pain ddd bipolar, migraines History of Any Multi-Drug Resistant Organisms: None Reported Past Surgical History: Section Additional Past Surgical History / Comment(s): medical history - migraines, DDD. surgical history - laproscopy for ovarian cyst Past Anesthesia/Blood Transfusion Reactions: No Reported Reaction Past Psychological History: Anxiety, Bipolar, Depression Smoking Status: Never smoker Past Alcohol Use History: Occasional Past Drug Use History: Cocaine, Marijuana - Past Family History Mother History Unknown: Yes Family Medical History: Cancer, Coronary Artery Disease (CAD), Hyperlipidemia, Hypertension General Exam Limitations: no limitations General appearance: alert Head exam: Present: atraumatic, normocephalic Eye exam: Present: normal appearance. Absent: scleral icterus, conjunctival injection ENT exam: Present: mucous membranes dry Neck exam: Present: normal inspection, full ROM. Absent: meningismus Respiratory exam: Present: normal lung sounds bilaterally. Absent: respiratory distress, wheezes, rales, rhonchi, stridor Cardiovascular Exam: Present: regular rate, normal rhythm, normal heart sounds. Absent: systolic murmur, diastolic murmur, rubs, gallop GI/Abdominal exam: Present: soft. Absent: distended, tenderness, guarding, rebound Extremities exam: Present: normal inspection, normal capillary refill. Absent: pedal edema Neurological exam: Present: alert Psychiatric exam: Present: agitated, manic. Absent: suicidal ideation Skin exam: Present: warm, dry, intact, normal color. Absent: rash Course Vital Signs 02/23/21 02:06 Temperature 98 F Pulse Rate 94 Respiratory 18 Rate Blood Pressure 115/80 O2 Sat by Pulse 99 Oximetry Procedures - Restraint - Face to Face Restraint Occurrence 1 Patient's Immediate Situation: Endangers self safety, Endangers others' safety Patient's Reaction to the Intervention: Anxious, Bizarre, Suspicious, Combative, Resistive to care Patient's Medical & Behavioral Condition: Agitated, Bizarre behavior Need to Continue or Terminate Restraint or Seclusion: Continue Face to Face Eval of Restraint Date: 02/23/21 Face to Face Eval of Restraint Time: 01:45 Medical Decision Making - Lab Data Result diagrams: 02/23/21 02:05 02/23/21 02:05 Lab Results 08/29/21 08/29/21 08/29/21 Range/Units 02:05 02:05 02:05 WBC 16.1 H (3.8-10.6) k/uL RBC 4.44 (3.80-5.40) m/uL Hgb 14.3 (11.4-16.0) gm/dL Hct 41.0 (34.0-46.0) % MCV 92.4 (80.0-100.0) fL MCH 32.1 (25.0-35.0) pg MCHC 34.8 (31.0-37.0) g/dL RDW 13.0 (11.5-15.5) % Plt Count 263 (150-450) k/uL MPV 9.4 Neutrophils % 79 % Lymphocytes % 14 % Monocytes % 5 % Eosinophils % 1 % Basophils % 1 % Neutrophils # 12.8 H (1.3-7.7) k/uL Lymphocytes # 2.2 (1.0-4.8) k/uL Monocytes # 0.8 (0-1.0) k/uL Eosinophils # 0.2 (0-0.7) k/uL Basophils # 0.1 (0-0.2) k/uL Sodium 143 (137-145) mmol/L Potassium 2.6 L* (3.5-5.1) mmol/L Chloride 111 H (98-107) mmol/L Carbon Dioxide 21 L (22-30) mmol/L Anion Gap 11 mmol/L BUN 9 (7-17) mg/dL Creatinine 0.77 (0.52-1.04) mg/dL Est GFR (CKD-EPI)AfAm >90 (>60 ml/min/1.73 sqM) Est GFR (CKD-EPI)NonAf >90 (>60 ml/min/1.73 sqM) Glucose 85 (74-99) mg/dL Calcium 9.7 (8.4-10.2) mg/dL Total Bilirubin 0.3 (0.2-1.3) mg/dL AST 33 (14-36) U/L ALT 31 (4-34) U/L Alkaline Phosphatase 95 (38-126) U/L Total Protein 7.5 (6.3-8.2) g/dL Albumin 4.6 (3.5-5.0) g/dL Serum Alcohol <10 mg/dL Coronavirus (PCR) Not Detected (Not Detectd) Disposition Clinical Impression: Agitation Disposition: HOME SELF-CARE Condition: Good Instructions (If sedation given, give patient instructions): Anxiety (ED) Is patient prescribed a controlled substance at d/c from ED?: No Referrals: Dwaine Ruby DO [Primary Care Provider] - 1-2 days
[2021-02-23 02:07] VITALS: BP 115/80; PULSE 94; RESP 18; TEMP 98
[2021-02-23 02:41] LABS: Basophils # (A) 0.1 k/uL (0-0.2); Basophils % (A) 1 %; Eosinophils # (A) 0.2 k/uL (0-0.7); Eosinophils % (A) 1 %; HGB 14.3 gm/dL (11.4-16.0); Lymphocytes # (A) 2.2 k/uL (1.0-4.8); Lymphocytes % (A) 14 %; MCH 32.1 pg (25.0-35.0); MCHC 34.8 g/dL (31.0-37.0); MCV 92.4 fL (80.0-100.0); Mean Platelet Volume 9.4; Monocytes # (A) 0.8 k/uL (0-1.0); Monocytes % (A) 5 %; Neutrophils # (A) 12.8 k/uL (1.3-7.7); Neutrophils % (A) 79 %; Platelet Count 263 k/uL (150-450); RBC 4.44 m/uL (3.80-5.40); WBC 16.1 k/uL (3.8-10.6)
[2021-02-23 03:01] LABS: ALT 31 U/L (4-34); AST 33 U/L (14-36); African American GFR (CKD) >90 (>60 ml/min/1.73 sqM); Albumin 4.6 g/dL (3.5-5.0); Alcohol <10 mg/dL; Alkaline Phosphatase 95 U/L (38-126); Anion Gap 11 mmol/L; Blood Urea Nitrogen 9 mg/dL (7-17); Calcium 9.7 mg/dL (8.4-10.2); Carbon Dioxide 21 mmol/L (22-30); Chloride 111 mmol/L (98-107); Glucose 85 mg/dL (74-99); Non-African American GFR(CKD) >90 (>60 ml/min/1.73 sqM); Sodium 143 mmol/L (137-145); Total Bilirubin 0.3 mg/dL (0.2-1.3); Total Protein 7.5 g/dL (6.3-8.2)
[2021-02-23 03:07] LABS: Potassium 2.6 mmol/L (3.5-5.1)
[2021-02-23] MEDS ORDERED: POTASSIUM CHLORIDE ER 20 MEQ TAB.ER PO STA (03:08)
== END 2021-02-23 04:52 | disposition home or self-care (01) ==
LOC: EC 01:19
DX: R45.1 Restlessness and agitation (principal); E78.5 Hyperlipidemia, unspecified; F41.9 Anxiety disorder, unspecified; F31.9 Bipolar disorder, unspecified; Z88.5 Allergy status to narcotic agent; Z88.1 Allergy status to other antibiotic agents; Z20.822 Contact with and (suspected) exposure to COVID-19
CPT/HCPCS: 99285; 96372 ×2; 36415; 80053; 84443; 85025; 87635; G0480; J2060; J3486; 80320

== ENCOUNTER 2021-02-24 05:25 | Inpatient (IN) | payer MEDICAID, MEDICARE ==
[2021-02-24] MEDS ORDERED: ZIPRASIDONE 20 MG VIAL IM PRN (09:27)
[2021-02-24] MEDS ORDERED: MAGNESIUM HYDROXIDE 2,400 MG/10 ML CUP PO PRN (09:27)
[2021-02-24] MEDS ORDERED: MAG HYDROX/AL HYDROX/SIMETH 30 ML CUP PO PRN (09:27)
[2021-02-24] MEDS ORDERED: LORazepam 2 MG/ML INJ IM PRN (09:35)
[2021-02-24] MEDS ORDERED: SUMAtriptan succinate 50 MG TAB PO PRN (10:27)
--- NOTE | 2021-02-24 10:34 | P.HP ---
Psychiatric H&P - . H&P Date: 02/24/21 History & Physical: Allergies Allergy/AdvReac Type Severity Reaction Status Date / Time aspirin Allergy Nausea & Verified 10/23/18 08:20 Vomiting cephalexin monohydrate Allergy Rash/Hives Verified 10/23/18 08:20 From Keflex [place] And Derivatives Allergy Rash/Hives Verified 02/18/21 15:32 [place] morphine Allergy Unknown Verified 10/23/18 08:20 propanolol Allergy Rash/Hives Uncoded 09/28/16 12:30 Vital Signs Temp 98.2 F 02/24/21 09:15 Pulse 99 02/24/21 09:15 Resp 18 02/24/21 09:15 BP 124/79 02/24/21 09:15 Pulse Ox 99 02/24/21 09:15 Intake & Output 02/23/21 02/24/21 02/24/21 18:59 06:59 18:59 Weight 67 kg 02/24/21 10:14 IDENTIFYING DATA: This patient is a 40-year-old female who is currently engaged to her fianc and lives with a friend has 3 kids and collects Social Security disability. HISTORY OF PRESENT ILLNESS: The patient presented to the hospital yesterday as she was brought in by her family due to bizarre behavior being hyperverbal and apparently responding to internal stimuli according to ER report. Patient was fairly agitated in the ER and received Geodon Im prns. Patient was admitted to the psychiatric unit on a petition and certificate. Patient was recently discharged from the medical floors on 02/19 after signing out AMA. Patient was seen in the hallways pacing and was yelling in the phone and slamming the phone. She was agitated and impulsive and yelling in the hallways as well. Patient was initially hesitant to speak to insurance underwriter however eventually agreed. She was very irritable and hostile and was labile as well, tearful during the interview. She was preoccupied with discharge and her children. She claims that it is a "calculated plan" by her family to bring her into the hospital. She believes that they may be wanting to take away her kids. She states that she "freaked out" at home and blames it on the Lamictal. She states that she has been having mood swings and has been having poor sleep. She states that the only thing that helped her Seroquel and claims that she does not want take any other medications. She has very poor insight into her condition. Appears to have poor hygiene and grooming. Patient denies any visual hallucinations. She claims that she does hear voices however was vague about what they say. Patients admits to using Cigarettes daily and claims that she quit using cocaine several years ago. She denies any alcohol use. PAST PSYCHIATRIC HISTORY: Patient has a a history of schizoaffective, bipolar and anxiety. She is currently on Seroquel ever has tried several other mood sta bilizers and antipsychotics in the past. She claims that she was last psychiatrically hospitalized in [place] in 2006 after her first and only suicide attempt where she overdosed on Tylenol. Claims that she has a tele-psychiatry appointment next week in [place]. Past Medical History: Hyperlipidemia, Seizure Disorder Additional Past Medical History / Comment(s): ovarian cyst chronic back pain ddd bipolar, migraines ALLERGIES: as per EMR. CHEMICAL DEPENDENCY HISTORY: as per HPI. FAMILY PSYCHIATRIC/SUBSTANCE USE HISTORY: She states that her father has schizophrenia. SOCIAL HISTORY: Patient was born and raised in [facility]. She states that she moved around a lot as a child growing up. She claims that she completed her GED and returned back to get some college credits. She claims that she was in long-term for possession of marijuana in the past. She has 3 kids. She currently is engaged with her fianc and lives with a friend. MENTAL STATUS EXAM: General Appearance: Patient appears to be stated age is alert, tearful at times, uncooperative. Patient appears to have poor hygiene and grooming wearing hospital gown with fair eye contact. Behavior: Patient is calmly lying in bed without any agitated behavior. Irritable at times. Style. Speech: Patient's speech is fluent and nonpressured. Mood/Affect: Patient reports their mood is "fine", affect is incongruent and labile Suicidality/Homicidality: Patient denies having any suicidal or homicidal ideation intent or plan. Perceptions: Patient denies any visual hallucinations and denies any auditory hallucinations Though content/process: There is no evidence of any delusional thought content and thought process is linear and goal-directed. Focused on her medications, her kids and on discharge. Memory and concentration: AOX3, grossly intact for the purposes of this session. Can spell "WORLD" backwards Judgment and insight: poor STRENGTHS/WEAKNESSES: strength is that patient is resilient. Weakness is that patient has poor judgment and is impulsive INTELLECT: average IMPRESSIONS: Schizoaffective disorder, bipolar type Anxiety disorder unspecified rule out extra pyramidal symptoms from psychotropic medications Cannabis use disorder Nicotine dependence PLAN: -Patient is admitted under involuntary status to MHU for stabilization of psychiatric symptoms and safety. Patient has not signed adult voluntary form and medication consent and is placed in patient's chart. A second certification was completed and along with petition will be filed for court. -Medications : Will start patient on Abilify 5 mg daily for mood stabilization/psychosis. Trazodone 50 mg daily at bedtime for insomnia/mood. -Ativan and Geodon PRN for agitation/aggression -Patient was informed of the risks, benefits and side effects of the medication and patient verbally consented to taking the medications. Patient signed med consent form and was placed in chart. -Internal Medicine consult to perform medical evaluation and physical. -NRT - nicotine patch -SW on board for discharge planning. Encourage patient to participate in groups to work on coping skills. Will await deferral and court date.
[2021-02-24] MEDS: NICOTINE 14MG/24HR PATCH TRANSDERM SCH (11:59)
[2021-02-24] MEDS: ARIPiprazole 5 MG TAB PO SCH (11:59)
[2021-02-24] MEDS: ACETAMINOPHEN TAB 325 MG TAB PO PRN ×2 (16:56→20:54)
[2021-02-24] MEDS ORDERED: traZODone HCL 50 MG TAB PO SCH (21:00)
[2021-02-24] MEDS: LORazepam 1 MG TAB PO PRN (21:51)
--- NOTE | 2021-02-25 00:32 | P.CONS ---
History of Present Illness - Reason for Consult Consult date: 02/25/21 - History of Present Illness The patient was seen and evaluated with mental health unit RN. I was never alone with the patient. The patient is a 40-year-old female with a PMH of seizure disorder and tobacco abuse who was brought into the emergency room by her family due to his strange behavior. The patient was admitted with mental health unit where she was seen and evaluated. She reports that the changes in her medications are making her October that she was. She denied any physical complaints. Reports smoking a pack of cigarettes daily for the past 2 decades. Denied drinking alcohol or using illicit substances. Denied chest discomfort, shortness of breath, fever, chills, cough. Denied nausea, vomiting, abdominal pain, diarrhea. Review of systems: Pertinent positives and negatives as discussed in HPI, a complete review of systems was performed and all other systems are negative. Physical examination: General: non toxic, no distress, appears at stated age, normal weight Derm: no unusual rashes/lesions no unusual ecchymoses, warm, dry Head: atraumatic, normocephalic, symmetric Eyes: EOMI, no lid lag, anicteric sclera, pupils equal round reactive to light ENT: Nose and ears atraumatic, no thrush, no pharyngeal erythema Neck: No thyromegaly, no cervical lymphadenopathy, trachea midline, supple Mouth: no lip lesion, mucus membranes moist Cardiovascular: S1S2 reg, no murmur, positive posterior tibial pulse bilateral, no edema, capillary refill less than 2 seconds Lungs: CTA bilateral, no rhonchi, no rales , no accessory muscle use Abdominal: soft, nontender to palpation, no guarding, no appreciable organomegaly, normal bowel sounds Ext: no gross muscle atrophy, muscle strength 5 out of 5 in all 4 extremities grossly, no contractures, Neuro: CN II-XI grossly intact, light touch intact all 4 extremities, finger to nose within normal limits, Psych: Alert, oriented, appropriate affect Assessment/plan Psychosis -As per psychiatry Tobacco abuse -Advised on importance of cessation Thank you for allowing us to participate in the care of this patient. We will follow peripherally. Do not hesitate to contact us with questions. Someone can be reached from the [facility] hospitalist group at all hours of the day at [phone]. Past Medical History Past Medical History: Hyperlipidemia, Seizure Disorder Additional Past Medical History / Comment(s): ovarian cyst chronic back pain ddd bipolar, migraines History of Any Multi-Drug Resistant Organisms: None Reported Past Surgical History: Section Additional Past Surgical History / Comment(s): medical history - migraines, DDD. surgical history - laproscopy for ovarian cyst Past Anesthesia/Blood Transfusion Reactions: No Reported Reaction Past Psychological History: Anxiety, Bipolar, Depression Smoking Status: Never smoker Past Alcohol Use History: Occasional Past Drug Use History: Cocaine, Marijuana - Past Family History Mother History Unknown: Yes Family Medical History: Cancer, Coronary Artery Disease (CAD), Hyperlipidemia, Hypertension Medications and Allergies Home Medications Medication Instructions Recorded Confirmed Type ALPRAZolam [Xanax] 0.5 mg PO BID PRN 02/17/21 02/17/21 History Benztropine Mesylate 1 mg PO BID 02/17/21 02/17/21 History Butalb/APAP/Caff 50-325-40Mg 1 tab PO BID PRN 02/17/21 02/17/21 History [Fioricet 50-325-40] QUEtiapine [SEROquel] 50 mg PO BID 02/17/21 02/17/21 History Rizatriptan Benzoate [Rizatriptan] 10 mg PO DAILY PRN 02/17/21 02/17/21 History lamoTRIgine [LaMICtal] 1 dose PO DIRECTED 02/17/21 02/17/21 History Allergies Allergy/AdvReac Type Severity Reaction Status Date / Time aspirin Allergy Nausea & Verified 10/23/18 08:20 Vomiting cephalexin monohydrate Allergy Rash/Hives Verified 10/23/18 08:20 [From Keflex] Cooke And Derivatives Allergy Rash/Hives Verified 02/18/21 15:32 [Cooke] morphine Allergy Unknown Verified 10/23/18 08:20 propanolol Allergy Rash/Hives Uncoded 09/28/16 12:30 Physical Exam Vitals: Vital Signs Temp Pulse Resp BP Pulse Ox 02/24/21 09:15 98.2 F 99 18 124/79 99 Intake and Output 02/24/21 02/24/21 02/25/21 14:59 22:59 06:59 Other: Weight 67 kg
[2021-02-25] MEDS: LORazepam 1 MG TAB PO PRN ×3 (01:19→09:00)
[2021-02-25] MEDS: BENZTROPINE MESYLATE 1 MG TAB PO PRN ×2 (02:13→16:35)
[2021-02-25] MEDS: ACETAMINOPHEN TAB 325 MG TAB PO PRN ×3 (07:49→16:35)
[2021-02-25] MEDS: ARIPiprazole 5 MG TAB PO SCH (08:18)
[2021-02-25] MEDS: NICOTINE 14MG/24HR PATCH TRANSDERM SCH (08:30)
[2021-02-25] MEDS: BUTALB/APAP/CAFF 50-325-40MG TAB PO PRN (09:01)
[2021-02-25] MEDS: hydrOXYzine pamoate 25 MG CAP PO SCH ×2 (11:25→20:53)
[2021-02-25] MEDS: traZODone HCL 100 MG TAB PO SCH (20:53)
[2021-02-26] MEDS: LORazepam 1 MG TAB PO PRN ×2 (01:06→22:40)
[2021-02-26] MEDS: ARIPiprazole 10 MG TAB PO SCH (08:25)
[2021-02-26] MEDS: hydrOXYzine pamoate 25 MG CAP PO SCH ×2 (08:25→20:27)
[2021-02-26] MEDS: NICOTINE 14MG/24HR PATCH TRANSDERM SCH (08:31)
[2021-02-26] MEDS ORDERED: ARIPiprazole IM 400 MG VIAL (NO COST) PHARMACY STOCK IM ONE (09:18)
[2021-02-26] MEDS ORDERED: ARIPiprazole IM SYRINGE 400 MG (NO CHARGE) PHARMACY STOCK IM ONE (09:30)
[2021-02-26] MEDS: ACETAMINOPHEN TAB 325 MG TAB PO PRN ×2 (09:58→16:28)
[2021-02-26] MEDS: traZODone HCL 100 MG TAB PO SCH (20:27)
[2021-02-26] MEDS ORDERED: MELATONIN 3 MG TABLET PO SCH (21:00)
[2021-02-27 06:37] VITALS: BP 125/76; PULSE 76; RESP 15; TEMP 97.7
[2021-02-27] MEDS: ARIPiprazole 10 MG TAB PO SCH (07:50)
[2021-02-27] MEDS: hydrOXYzine pamoate 25 MG CAP PO SCH (07:50)
[2021-02-27] MEDS: BUTALB/APAP/CAFF 50-325-40MG TAB PO PRN (08:41)
[2021-02-27] MEDS ORDERED: hydrOXYzine pamoate 25 MG CAP PO SCH (21:00)
[2021-02-27] MEDS ORDERED: MELATONIN 5 MG TABLET PO SCH (21:00)
[2021-02-28] MEDS ORDERED: hydrOXYzine pamoate 25 MG CAP PO SCH (09:00)
== END 2021-02-27 12:58 | disposition home or self-care (01) ==
LOC: 3MHU 09:09
PROVIDERS: ADMIT Psychiatry & Neurology Psychiatry; ATTEND Psychiatry & Neurology Psychiatry
CPT/HCPCS: 36415; 80053; 80320; 84443; 85025; 87635